=== PATIENT | male | born 1930 | race Asian ===

== ENCOUNTER 2016-08-12 08:08 | Inpatient (IN) | payer OTHER ==
[2016-08-12] VITALS (8 sets, daily range): BP systolic 107–209; BP diastolic 59–95; PULSE 64–104; RESP 18; TEMP 98.6; Ht 160 cm; Wt 65.0 kg
[~2016-08-12] VITALS: Ht 160 cm; Wt 65.0 kg
--- NOTE | 2016-08-12 08:17 | ERA ---
ER Documentation Chief Complaint Date/Time DATE: 08/12/16 TIME: 08:15 Chief Complaint HPI Patient is an 86-year-old male who presents with altered mental status of unknown duration. The patient has severe Parkinson's disease, and is in a alf. At baseline he is verbal, but this morning was found to be nonverbal. It is unclear what time the patient had a change in mental status, as the nurse had not seen him in several weeks. There is no report of fever, vomiting, focal weakness or numbness. History provided by EMS. Unable to obtain history from patient which limits history. ROS All systems reviewed and are negative except as per history of present illness. Allergies Allergies: Coded Allergies: No Known Allergy (Unverified , 08/12/16) PMhx/Soc Past medical history: Parkinson's disease, COPD, hypertension Past surgical history: PEG tube Social history: Lives in alf FmHx Unobtainable Physical Exam Vitals Vital Signs Date Time Temp Pulse Resp B/P Pulse Ox O2 Delivery O2 Flow Rate FiO2 08/12/16 08:30 101.2 105 22 132/88 100 08/12/16 08:30 Nasal Cannula 5 Physical Exam Const: Ill-appearing, tremulous, not responding to verbal stimuli, no eye contact Head: Atraumatic Eyes: Normal Conjunctiva, no pallor, no icterus ENT: Normal External Ears, Nose and Mouth. Dry mucous membranes Neck: Full range of motion..~ No meningismus. Resp: Clear to auscultation bilaterally, trace rales left lung base, no wheezes, no prolonged expiration Cardio: Tachycardia, regular rhythm, no murmurs Abd: Soft, non tender, suprapubic distention. Normal bowel sounds Skin: No petechiae or rashes Back: No midline or flank tenderness Ext: No cyanosis, or edema Neur: Awake, no eye contact, no purposeful movements, severely tremulous. Psych: Cannot assess Result Diagram: 08/12/1683408/12/16834 Results 24 hrs Laboratory Tests Test 08/12/16 08:35 08/12/16 08:53 08/12/16 10:26 White Blood Count 11.310^3/ul Red Blood Count 3.8010^6/ul Hemoglobin 11.6g/dl Hematocrit 37.9% Mean Corpuscular Volume 99.7fl Mean Corpuscular Hemoglobin 30.5pg Mean Corpuscular Hemoglobin Concent 30.6g/dl Red Cell Distribution Width 14.6% Platelet Count 67183^3/UL Mean Platelet Volume 10.1fl Neutrophils % 69.7% Lymphocytes % 22.3% Monocytes % 6.1% Eosinophils % 1.2% Basophils % 0.3% Nucleated Red Blood Cells % 0.0/100WBC Neutrophils # 7.910^3/ul Lymphocytes # 2.510^3/ul Monocytes # 0.710^3/ul Eosinophils # 0.110^3/ul Basophils # 0.010^3/ul Nucleated Red Blood Cells # 0.010^3/ul Prothrombin Time 12.8Sec Prothrombin Time Ratio 1.0 INR International Normalized Ratio 0.96 Sodium Level 143mmol/L Potassium Level 4.3mmol/L Chloride Level 98mmol/L Carbon Dioxide Level 35mmol/L Anion Gap 14 Blood Urea Nitrogen 30mg/dl Creatinine 0.84mg/dl Glucose Level 145mg/dl Lactic Acid Level 2.1mmol/L 1.8mmol/L Calcium Level 8.9mg/dl Total Bilirubin 0.5mg/dl Direct Bilirubin 0.00mg/dl Indirect Bilirubin 0.5mg/dl Aspartate Amino Transf (AST/SGOT) 26IU/L Alanine Aminotransferase (ALT/SGPT) 22IU/L Alkaline Phosphatase 89IU/L Troponin I < 0.012ng/ml Total Protein 7.8g/dl Albumin 3.7g/dl Globulin 4.10g/dl Albumin/Globulin Ratio 0.90 Urine Color LT. YELLOW Urine Clarity CLEAR Urine pH 6.0 Urine Specific [place] 1.010 Urine Ketones NEGATIVE Urine Nitrite NEGATIVE Urine Bilirubin NEGATIVE Urine Urobilinogen 0.2 E.U./dL Urine Leukocyte Esterase NEGATIVE Urine Hemoglobin NEGATIVE Urine Glucose NEGATIVE% Urine Total Protein NEGATIVE Current Medications Medications (Trade) Dose Ordered Sig/Dieudonne Route PRN Reason Start Time Stop Time Status Last Admin Dose Admin Sodium Chloride 1,000 ml @ 1,000 mls/hr Q1H ONCE IV 08/12/16 08:30 08/12/16 09:29 DC 08/12/16 08:49 Sodium Chloride 1,000 ml @ 1,000 mls/hr Q1H ONCE IV 08/12/16 08:30 08/12/16 09:29 DC 08/12/16 08:49 Cefepime HCl (Maxipime 2gm/50 ml (Pmx)) 50 ml @ 100 mls/hr ONCE ONCE IVPB 08/12/16 09:30 08/12/16 09:59 DC 08/12/16 10:02 Acetaminophen (Tylenol Liquid) 650 mg ONCE ONCE NGT 08/12/16 09:30 08/12/16 09:31 DC 08/12/16 09:58 Ondansetron HCl (Zofran Inj) 4 mg BRIDGE ORDER PRN IV NAUSEA AND/OR VOMITING 08/12/16 12:30 08/13/16 12:29 Acetaminophen (Tylenol Tab) 650 mg ER BRIDGE PRN PO MILD PAIN/FEVER 08/12/16 12:30 08/13/16 12:29 Procedures/MDM EKG read by me: Time 919, rate 102 Rhythm: Sinus tachycardia Rover: Normal Intervals: Normal ST-T waves: no ischemic changes Ectopy: No Q-waves: No Impression: Sinus tachycardia, no evidence of ischemia or arrhythmia. MDM: Patient is an 86-year-old male with severe Parkinson's disease who presents with altered mental status. The patient is usually verbal but this morning was found to be nonverbal. There is no focal neurological deficit, and the patient was found to have fever. Sepsis treatment was initiated, with blood culture sent and IV cefepime and fluids given. UA and chest x-ray did not show signs of infection, but the patient did have trace rales on lung exam which could suggest early pneumonia. The patient does have history of prior aspiration. There are no meningeal signs, and no abdominal tenderness. The patient's daughter arrived and the patient's status improved to the point that he is able to communicate now. He is [id number], but with his daughter translating he is able to say that he does not have any headache, neck pain, abdominal pain, back pain. His labs show elevated BUN to creatinine ratio , and his mucous membranes were dry on arrival, which suggests dehydration. The patient will be admitted to Dr. Jacobs for further septic workup and treatment. Departure Diagnosis: Primary Impression: Sepsis Qualified Code: A41.9 - Sepsis, due to unspecified organism Additional Impressions: Altered level of consciousness Dehydration Condition: SONA Corral MD Aug 12, 2016 08:17
[2016-08-12] MEDS ORDERED: SOD CHLORIDE 0.9% 1,000 ML IV ONE ×2 (08:30)
--- NOTE | 2016-08-12 09:02 | RADRPT ---
PROCEDURE: XR Chest. CLINICAL INDICATION: Chest pain, altered mental status TECHNIQUE: AP view of the chest was performed. COMPARISON: None FINDINGS: Mild cardiomegaly and vascular congestion are present. No signs of pleural fluid or pneumothorax are seen. No acute infiltrate. The osseous structures and soft tissues are unremarkable. IMPRESSION: Mild cardiomegaly and vascular congestion. No acute infiltrate. RPTAT: QQ .Vi Nur MD, MD Date Time Electronically viewed and signed by .Vi Nur MD, on 08/12/2016 09:02 .F/
[2016-08-12 09:18] LABS: ADD SCAN DIFF NO
[2016-08-12 09:21] LABS: BASOPHILS % 0.3 % (0.0-2.0); EOSINOPHILS # 0.1 10^3/ul (0.0-0.5); EOSINOPHILS % 1.2 % (0.0-7.0); HEMATOCRIT 37.9 % (42.0-52.0); HEMOGLOBIN 11.6 g/dl (14.0-18.0); LYMPHOCYTES # 2.5 10^3/ul (0.8-2.9); LYMPHOCYTES % 22.3 % (15.0-51.0); MEAN CORPUSCULAR HEMOGLOBIN 30.5 pg (29.0-33.0); MEAN CORPUSCULAR HGB CONC 30.6 g/dl (32.0-37.0); MEAN CORPUSCULAR VOLUME 99.7 fl (82.0-101.0); MEAN PLATELET VOLUME 10.1 fl (7.4-10.4); MONOCYTE # 0.7 10^3/ul (0.3-0.9); MONOCYTES % 6.1 % (0.0-11.0); NEUTROPHIL # 7.9 10^3/ul (1.6-7.5); NEUTROPHILS % 69.7 % (39.0-77.0); PLATELET COUNT 179 10^3/UL (140-415); RED CELL DISTRIBUTION WIDTH 14.6 % (11.5-14.5); WHITE BLOOD COUNT 11.3 10^3/ul (4.8-10.8)
[2016-08-12 09:25] LABS: ADD UMIC NO; URINE BILIRUBIN (Dip) NEGATIVE (NEGATIVE); URINE BLOOD (Dip) NEGATIVE (NEGATIVE); URINE COLOR LT. YELLOW (YELLOW); URINE GLUCOSE (Dip) NEGATIVE (NEGATIVE); URINE KETONES (Dip) NEGATIVE (NEGATIVE); URINE LEUKOCYTE ESTERASE (Dip) NEGATIVE (NEGATIVE); URINE NITRITE (Dip) NEGATIVE (NEGATIVE); URINE TOTAL PROTEIN (Dip) NEGATIVE (NEGATIVE); URINE UROBILINOGEN (Dip) 0.2 E.U./dL (0.1-1.0)
[2016-08-12 09:30] LABS: ALBUMIN 3.7 g/dl (3.3-4.9); CHLORIDE 98 mmol/L (97-110); POTASSIUM 4.3 mmol/L (3.5-5.1); SODIUM 143 mmol/L (135-144)
[2016-08-12] MEDS ORDERED: CEFEPIME 2GM/50 ML (PMX) 50 ML IVPB ONE (09:30)
[2016-08-12] MEDS ORDERED: ACETAMINOPHEN 650MG/20.3ML CUP NGT ONE (09:30)
[2016-08-12 09:31] LABS: INR 0.96; PROTIME 12.8 Sec (12.2-14.2)
[2016-08-12 09:32] LABS: CREATININE 0.84 mg/dl (0.61-1.24)
[2016-08-12 09:33] LABS: ALANINE AMINOTRANSFERASE 22 IU/L (13-69); ALKALINE PHOSPHATASE 89 IU/L (42-121); ANION GAP 14 (8-16); ASPARTATE AMINO TRANSFERASE 26 IU/L (15-46); BILIRUBIN,INDIRECT 0.5 mg/dl (0-1.1); BILIRUBIN,TOTAL 0.5 mg/dl (0.2-1.3); BLOOD UREA NITROGEN 30 mg/dl (7-20); CALCIUM 8.9 mg/dl (8.4-10.2); CARBON DIOXIDE 35 mmol/L (21-31); GLUCOSE 145 mg/dl (70-220); TOTAL PROTEIN 7.8 g/dl (6.1-8.1)
[2016-08-12 09:50] LABS: TROPONIN-I < 0.012 ng/ml (0.00-0.12)
[2016-08-12] MEDS ORDERED: ACETAMINOPHEN 325 MG TAB PO PRN (12:30)
[2016-08-12] MEDS ORDERED: ONDANSETRON 4 MG INJ IV PRN ×2 (12:30→14:00)
[2016-08-12] MEDS ORDERED: NA PHOSPHATE/BIPHOS 133 ML ENEMA PR PRN (14:00)
[2016-08-12] MEDS ORDERED: morphine 2 MG INJ IV PRN (14:00)
[2016-08-12] MEDS ORDERED: DOCUSATE SODIUM 100 MG CAP PO PRN (14:00)
[2016-08-12] MEDS ORDERED: VANCOMYCIN IV PER PHARMACY XX SCH (14:00)
[2016-08-12] MEDS ORDERED: NITROGLYCERIN (SL) 0.4 MG TAB SL PRN (14:00)
[2016-08-12] MEDS ORDERED: MAGNESIUM HYDROXIDE 30ML CUP PO PRN (14:00)
[2016-08-12] MEDS ORDERED: HYDROCODONE/APAP (5/325) TAB PO PRN (14:00)
[2016-08-12] MEDS ORDERED: NACL 0.9% 3 ML SYG IV SCH (14:00)
--- NOTE | 2016-08-12 14:28 | HP ---
DATE OF ADMISSION: 08/12/2016 CHIEF COMPLAINT: Altered mental status. HISTORY OF PRESENT ILLNESS: This is an 86-year-old male with past medical history of severe Jose on disease and G-tube placement, who lives in a retirement who was brought over because of altered mental status to the ER. Most of the information obtained from the ER documentation as the patient is not able to provide a full HPI or review of systems. Apparently it is unclear what time the pat ieasha had a change in mental status, as the nursing staff had apparently not seen him in a few weeks. When he came to the ER today, he had a temperature 101.2. Denied any vomiting or weakness or numb ness, based on the documentation, but that was the extent of the review of the systems that could be obtained. When he came in today, he also had a lactic acid of 2.1 and a white blood cell count of 11.3 and questionable findings on the chest x-ray of a possible left lower lobe pneumonia. PAST MEDICAL HISTORY: As stated above, as well as hypertension and COPD. ALLERGIES: NO KNOWN DRUG ALLERGIES. MEDICATIONS AT HOME: Unknown. PAST SURGICAL HISTORY: He has had PEG tube placed in the past. SOCIAL HISTORY: Lives in a retirement, unclear about smoking history or drug abuse or alcohol use . Unclear about those. FAMILY HISTORY: Unknown. PHYSICAL EXAMINATION: VITAL SIGNS: T-max 101.2, pulse 105, respirations 22, blood pressure 132/88, saturating 100% on 5 l iters nasal cannula. GENERAL: The patient lying in bed, does not make eye contact, nonresponsive to verbal stimuli. HEENT: Pupils equal, round, react to light. Extraocular muscles intact. NECK: Supple, no thyromegaly. LUNGS: Clear to auscultation bilaterally. CARDIOVASCULAR: S1, S2 heard, tachycardic heart rate. No rubs or gallops. ABDOMEN: Soft, nontender, nondistended. G-tube in place, normal bowel sounds. No rebound or guard ing. MUSCULOSKELETAL: No lower extremity edema bilaterally. NEUROLOGIC: No focal deficits. LABORATORIES: WBC 11.3, hemoglobin 11.6, hematocrit 37.9, platelets 179. The comprehensive metabol ic panel is essentially normal. Troponin is negative x1. Coags are normal. UA was negative. IMAGING: Chest x-ray showed mild cardiomegaly, vascular congestion. ASSESSMENT AND PLAN: An 86-year-old male coming in with sepsis, unclear source, possibly secondary to upper respiratory infection after having altered mental status. 1. Altered mental status, again unclear source. We will go ahead and get a head CT as well. Check TSH, A1c, lipid panel as well. 2. Sepsis, again, patient with fever and slightly elevated lactic acidosis, leukocytosis and tachyc ardia, unclear source, although questionable findings on the chest x-ray with possible aspiration pn eumonia upon reviewing the actual image, so will put the patient on broad spectrum antibiotics, IV f luids. Again, Check a TSH, A1c, lipid panel. Tylenol p.r.n. pain and fevers as well. 3. History of severe Parkinson disease. Continue to monitor for now. Try to get home medication l ist the patient 4. Gastrointestinal and Protonix IV for GI prophylaxis and hold the G-tube feeds for now. 5. Deep venous thrombosis prophylaxis will be on heparin subq. Get a PT consult as well and OT arina sinclair. Dictated By: TERESA GORMAN Conf#: [id number] DID#: [id number]
[2016-08-12] MEDS: SOD CHLORIDE 0.9% 1,000 ML IV SCH (15:08)
[2016-08-12] MEDS ORDERED: VANCOMYCIN 1.25 GM in SOD CHLORIDE 0.9% 250 ML IVPB SCH (16:00)
[2016-08-12] MEDS: MIDODRINE 5 MG TAB GTB SCH (17:00)
--- NOTE | 2016-08-12 17:08 | RADRPT ---
PROCEDURE: CT Head without. CLINICAL INDICATION: Suspected stroke. TECHNIQUE: The study was performed utilizing a multi-slice, multidetector CT scanner. Direct spira l 1 mm axial sections were obtained through the head without the use of intravenous contrast materia l. 1 or more of the following dose reduction techniques were utilized: Automated exposure control, adjustment of the mA and/or kV according to patient's size, iterative reconstruction technique. Co lyndsey and sagittal reformations were obtained. The images were reviewed on a PACS workstation. RADIATION DOSE: CTDIvol: 45.0 mGyDLP: 810.3 mGy-cm COMPARISON: No prior studies are available for comparison. FINDINGS: There is no intracranial hemorrhage, extra-axial fluid collection, mass lesion, midline shift or hyd rocephalus. 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 There is mild prominence of the cerebral sulci, lateral and third ventricles. There is mild periventricular and subcortical white matter hypodensity. There is moderate arteriosclerotic calcification of the teto ellar internal carotid arteries. The suarez-white matter differentiation is preserved. The basal cis terns are patent. The midline structures are intact. There are mild inflammatory changes of the bi lateral maxillary sinuses. There are postoperative changes from bilateral medial antrectomies and p artial ethmoidectomies, incompletely evaluated. The orbits, calvarium and extracranial soft tissues are normal in appearance. The mastoid air cells and middle ear cavities are normally aerated. IMPRESSION: 1. No acute intracranial abnormality. No intracranial hemorrhage, extra-axial fluid collection, ma ss lesion or hydrocephalous. 2. Mild peripheral and central cerebral volume loss. 3. Mild periventricular and subcortical white matter hypodensity, likely related to chronic microan giopathic changes. 4. No CT evidence of infarct at this time. If clinical concern for infarct, MRI is recommended for further evaluation. 4. Benign left middle cranial fossa arachnoid cyst measuring 3.6 x 2.1 cm. RPTAT: HGAS .Gallito Patton MD, Date Time Electronically viewed and signed by .Gallito Patton MD, on 08/12/2016 17:08 .S/
[2016-08-12] MEDS ORDERED: GUAIFENESIN 20 MG/ML 5ML CUP GTB PRN (17:30)
[2016-08-12] MEDS: hydrALAzine 20 MG INJ IV PRN (18:10)
[2016-08-12] MEDS ORDERED: ARTIFICIAL TEARS 15 ML OPH BOTH EYES PRN (18:30)
[2016-08-12] MEDS: PIPER-TAZO 3.375 GM IV (PMX) 100 ML IVPB SCH (18:52)
[2016-08-12] MEDS: LORAZEPAM 2 MG INJ IV PRN (19:56)
[2016-08-12] MEDS: SALMETEROL/FLUTICASONE 250/50 INHA INH SCH (21:02)
[2016-08-12] MEDS: CARBIDOPA/LEVODOPA (25/100) TAB GTB SCH (21:02)
[2016-08-12] MEDS: SENNA TAB PO SCH (21:07)
[2016-08-12] MEDS: PRAMIPEXOLE 1 MG TAB NGT SCH (21:08)
[2016-08-12] MEDS: HEPARIN 5,000 UNIT/0.5 ML VIAL SC SCH (21:09)
[2016-08-12] MEDS: MONTELUKAST 10 MG TAB GTB SCH (21:19)
[2016-08-12] MEDS: ASCORBIC ACID 500 MG TAB GTB SCH (21:19)
[2016-08-13] MEDS: PIPER-TAZO 3.375 GM IV (PMX) 100 ML IVPB SCH ×5 (01:29→23:48)
[2016-08-13] MEDS: SOD CHLORIDE 0.9% 1,000 ML IV SCH ×2 (01:29→14:29)
[2016-08-13] MEDS: PANTOPRAZOLE 40 MG INJ IV SCH (05:50)
[2016-08-13 05:59] LABS: CHOL/HDL RATIO 2.4 RATIO
[2016-08-13 06:59] LABS: THYROID STIMULATING HORMONE 2.32 MIU/L (0.465-4.680)
[2016-08-13 08:10] VITALS: BP 166/77; RESP 20
[2016-08-13 08:27] LABS: CALCIUM 8.5 mg/dl (8.4-10.2); CREATININE 0.63 mg/dl (0.61-1.24); MAGNESIUM 2.1 mg/dl (1.7-2.5); PHOSPHORUS 3.2 mg/dl (2.5-4.9); POTASSIUM 4.2 mmol/L (3.5-5.1)
[2016-08-13] MEDS ORDERED: [UNRECOGNIZED DRUG - REMARK] XX SCH (08:30)
[2016-08-13] MEDS: MIDODRINE 5 MG TAB GTB SCH ×3 (09:00→17:00)
[2016-08-13 09:03] LABS: ADD SCAN DIFF NO
[2016-08-13] MEDS: SALMETEROL/FLUTICASONE 250/50 INHA INH SCH ×2 (09:09→21:38)
[2016-08-13] MEDS: ASCORBIC ACID 500 MG TAB GTB SCH ×2 (09:10→21:40)
[2016-08-13] MEDS: PRAMIPEXOLE 1 MG TAB NGT SCH ×3 (09:10→21:40)
[2016-08-13] MEDS: CARBIDOPA/LEVODOPA (25/100) TAB GTB SCH ×3 (09:10→21:39)
[2016-08-13] MEDS: MULTIVITAMINS 5 ML CUP GTB SCH (09:10)
[2016-08-13 09:11] LABS: BASOPHILS % 0.3 % (0.0-2.0); EOSINOPHILS # 0.1 10^3/ul (0.0-0.5); EOSINOPHILS % 1.2 % (0.0-7.0); HEMATOCRIT 35.6 % (42.0-52.0); HEMOGLOBIN 10.6 g/dl (14.0-18.0); LYMPHOCYTES # 1.2 10^3/ul (0.8-2.9); LYMPHOCYTES % 13.4 % (15.0-51.0); MEAN CORPUSCULAR HEMOGLOBIN 30.2 pg (29.0-33.0); MEAN CORPUSCULAR HGB CONC 29.8 g/dl (32.0-37.0); MEAN CORPUSCULAR VOLUME 101.4 fl (82.0-101.0); MEAN PLATELET VOLUME 10.2 fl (7.4-10.4); MONOCYTE # 0.6 10^3/ul (0.3-0.9); MONOCYTES % 7.1 % (0.0-11.0); NEUTROPHILS % 77.8 % (39.0-77.0); PLATELET COUNT 146 10^3/UL (140-415); RED BLOOD COUNT 3.51 10^6/ul (4.70-6.10); RED CELL DISTRIBUTION WIDTH 14.6 % (11.5-14.5)
[2016-08-13] MEDS: HEPARIN 5,000 UNIT/0.5 ML VIAL SC SCH ×2 (09:18→21:43)
[2016-08-13 12:28] VITALS: BP 150/70; PULSE 83
[2016-08-13] MEDS: ACETAMINOPHEN 325 MG TAB PO PRN (12:33)
[2016-08-13] MEDS: VANCOMYCIN 1.25 GM in SOD CHLORIDE 0.9% 250 ML IVPB SCH (14:29)
[2016-08-13 14:42] VITALS: BP 178/81; PULSE 92
[2016-08-13 15:51] VITALS: BP 113/58; PULSE 70
[2016-08-13 17:14] VITALS: BP 137/94; PULSE 94
--- NOTE | 2016-08-13 19:10 | PN ---
DATE: 08/13/2016 SUBJECTIVE: Chart reviewed. No significant events noted. The patient at this time is awake and co nversant; however, not sure what he is verbalizing clearly. The patient has been started on G-tube feedings. PHYSICAL EXAMINATION: VITAL SIGNS: Blood pressure 150/70, pulse 83, respirations 20, temperature 98.5. HEENT: Pupils are equal, reactive to light. Anicteric sclerae. Dry oral mucosa. NECK: Supple. No JVD noted, no cervical adenopathy, no carotid bruits heard. LUNGS: Fair breath sounds bilaterally. CARDIOVASCULAR: S1, S2 normal. ABDOMEN: Soft, nontender. G-tube in place. EXTREMITIES: No clubbing or cyanosis noted. NEUROLOGIC: Slightly conversant compared to yesterday. LABORATORY DATA: Sodium 140, potassium 4.2, chloride 107, CO2 of ____, BUN 20, creatinine 0.63, glu cose 81. WBC 9, hemoglobin 10.6, hematocrit 35.6, platelets 145. UA is negative. Chest x-ray show s no acute infiltrate. IMPRESSION: 1. Acute encephalopathy. Source unclear at this time. 2. Dysphagia. 3. History of hypertension. 4. History of chronic obstructive pulmonary disease. 5. Question underlying mental status or whether he has any history of dementia. Will clarify with the family. PLAN: 1. Continue current antibiotics. 2. Continue G-tube feedings. 3. Follow up labs in the morning. 4. ST eval. Above discussed with the staff in detail. Dictated By: DANN WALTON MD, MA/ORALIA Conf#: [id number] DID#: [id number] CC: TERESA RAINES;*EndCC*
[2016-08-13 20:02] VITALS: BP 166/77; RESP 20
[2016-08-13] MEDS: SENNA TAB PO SCH (21:41)
[2016-08-13] MEDS: MONTELUKAST 10 MG TAB GTB SCH (21:41)
[2016-08-14] MEDS: SOD CHLORIDE 0.9% 1,000 ML IV SCH ×3 (05:51→15:07)
[2016-08-14] MEDS: PANTOPRAZOLE 40 MG INJ IV SCH (05:51)
[2016-08-14] MEDS: PIPER-TAZO 3.375 GM IV (PMX) 100 ML IVPB SCH ×4 (05:51→23:34)
[2016-08-14] MEDS: ACETAMINOPHEN 325 MG TAB PO PRN ×2 (05:57→18:22)
[2016-08-14 08:01] VITALS: BP 152/72; RESP 16
[2016-08-14 08:43] LABS: ADD SCAN DIFF NO
[2016-08-14 08:55] LABS: BASOPHILS % 0.2 % (0.0-2.0); EOSINOPHILS % 0.3 % (0.0-7.0); HEMATOCRIT 32.5 % (42.0-52.0); HEMOGLOBIN 10.5 g/dl (14.0-18.0); LYMPHOCYTES # 0.7 10^3/ul (0.8-2.9); LYMPHOCYTES % 7.8 % (15.0-51.0); MEAN CORPUSCULAR HEMOGLOBIN 31.3 pg (29.0-33.0); MEAN CORPUSCULAR HGB CONC 32.3 g/dl (32.0-37.0); MEAN CORPUSCULAR VOLUME 96.7 fl (82.0-101.0); MEAN PLATELET VOLUME 10.3 fl (7.4-10.4); MONOCYTE # 0.5 10^3/ul (0.3-0.9); NEUTROPHIL # 7.5 10^3/ul (1.6-7.5); NEUTROPHILS % 85.4 % (39.0-77.0); PLATELET COUNT 146 10^3/UL (140-415); RED BLOOD COUNT 3.36 10^6/ul (4.70-6.10); RED CELL DISTRIBUTION WIDTH 14.3 % (11.5-14.5); WHITE BLOOD COUNT 8.8 10^3/ul (4.8-10.8)
[2016-08-14] MEDS: MIDODRINE 5 MG TAB GTB SCH ×2 (09:00→12:45)
[2016-08-14 09:35] LABS: CALCIUM 8.1 mg/dl (8.4-10.2); CREATININE 0.65 mg/dl (0.61-1.24); POTASSIUM 3.6 mmol/L (3.5-5.1)
[2016-08-14] MEDS: MULTIVITAMINS 5 ML CUP GTB SCH (09:39)
[2016-08-14] MEDS: ASCORBIC ACID 500 MG TAB GTB SCH ×2 (09:39→22:20)
[2016-08-14] MEDS: CARBIDOPA/LEVODOPA (25/100) TAB GTB SCH ×3 (09:39→22:20)
[2016-08-14] MEDS: SALMETEROL/FLUTICASONE 250/50 INHA INH SCH ×2 (09:40→22:18)
[2016-08-14] MEDS: HEPARIN 5,000 UNIT/0.5 ML VIAL SC SCH ×2 (09:41→22:19)
[2016-08-14] MEDS: PRAMIPEXOLE 1 MG TAB NGT SCH ×3 (09:44→22:18)
[2016-08-14] MEDS: VANCOMYCIN 1.25 GM in SOD CHLORIDE 0.9% 250 ML IVPB SCH (15:03)
--- NOTE | 2016-08-14 15:11 | PN ---
Date/Time of Note Date/Time of Note DATE: 08/14/16 TIME: 15:07 Assessment/Plan VTE Prophylaxis VTE Prophylaxis Intervention: heparin Lines/Catheters IV C[facility]ter Type (from [facility]): Peripheral IV Urinary Cath still in place: Yes Reason Cath still needed: other (indicate) Assessment/Plan Assessment/Plan 1. Acute metabolic encephalopathy, sepsis related, resolved 2. Aspiration pneumonia, on antibiotics 3. Sepsis,improved 3. Parkinson disease. Continue to monitor for now. 4. Gastrointestinal and Protonix IV for GI prophylaxis and hold the G-tube feeds for now. 5. Deep venous thrombosis prophylaxis will be on heparin subq. Subjective 24 Hr Interval Summary Free Text/Dictation full oriented and oriented today. coughs occasionally per staff Exam/Review of Systems Vital Signs Vitals Vital Signs Date Time Temp Pulse Resp B/P Pulse Ox O2 Delivery O2 Flow Rate FiO2 08/14/16 11:30 98.3 08/14/16 08:01 71 16 152/72 97 08/14/16 05:40 2.0 08/13/16 20:00 Nasal Cannula Intake and Output 08/13/16 08/13/16 08/14/16 15:00 23:00 07:00 Intake Total 350 ml 2600 ml Output Total 850 ml 850 ml Balance -500 ml 1750 ml Exam Constitutional: alert, oriented, well developed Psych: nl mood/affect, no complaints Head: atraumatic, normocephalic Eyes: EOMI, PERRL, nl conjunctiva, nl lids ENMT: nl external ears & nose, nl lips & teeth, nl nasal mucosa & septum Neck: non-tender, supple Respiratory: clear to auscultation, normal air movement, No congested cough, No crackles/rales, No diminished breath sounds, No intercostal retraction, No labored breathing, No other, No respirations, No tactile fremitus, No wheezing Cardiovascular: nl pulses, regular rate and rhythm, No S3, No S4, No bruits, No diastolic murmur, No edema, No gallop, No irregular rhythm, No jugular venous distention (JVD), No murmurs/extra sounds, No other, No rub, No systolic murmur Gastrointestinal: nl liver, spleen, non-tender, soft, No ascites, No bowel sounds, No distended, No firm, No hepatomegaly, No mass , No other, No rebound or guarding, No splenomegaly, No surgical scars, No tender Musculoskeletal: nl extremities to inspection Extremities: normal pulses, No calf tenderness, No clubbing, No cyanosis, No edema, No other, No palpable cord, No pitting pedal edema, No tenderness Neurological: WASTE DISPOSAL ATTENDANT II-XII intact, nl mental status, nl speech, nl strength Skin: nl turgor Lymph: nl lymph nodes Results Result Diagram: 08/14/16 0710 08/14/16 0710 Results 24 hrs Laboratory Tests Test 08/13/16 18:44 08/14/16 07:10 Lactic Acid Level 0.9 White Blood Count 8.8 Red Blood Count 3.36 L Hemoglobin 10.5 L Hematocrit 32.5 L Mean Corpuscular Volume 96.7 Mean Corpuscular Hemoglobin 31.3 Mean Corpuscular Hemoglobin Concent 32.3 Red Cell Distribution Width 14.3 Platelet Count 146 Mean Platelet Volume 10.3 Neutrophils % 85.4 H Lymphocytes % 7.8 L Monocytes % 6.0 Eosinophils % 0.3 Basophils % 0.2 Nucleated Red Blood Cells % 0.0 Neutrophils # 7.5 Lymphocytes # 0.7 L Monocytes # 0.5 Eosinophils # 0.0 Basophils # 0.0 Nucleated Red Blood Cells # 0.0 Sodium Level 138 Potassium Level 3.6 Chloride Level 107 Carbon Dioxide Level 27 Anion Gap 8 Blood Urea Nitrogen 18 Creatinine 0.65 Glucose Level 132 # Calcium Level 8.1 L Medications Medications Current Medications Ondansetron HCl (Zofran Inj) 4 mg Q6H PRN IV NAUSEA AND/OR VOMITING; Start at 14:00 Acetaminophen (Tylenol Tab) 650 mg Q6H PRN PO PAIN LEVEL 1-3 OR FEVER Last administered on 08/14/16 05:57; Admin Dose 650 MG; Start 08/12/16 at 14:00 Acetaminophen/ Hydrocodone Bitart ([place] (5/325)) 1 tab Q6H PRN PO MODERATE PAIN LEVEL 4-6 Last administered on 08/12/16 18:05; Admin Dose 1 TAB; Start at 14:00 Morphine Sulfate (morphine) 2 mg Q4H PRN IV SEVERE PAIN LEVEL 7-10; Start 08/12 at 14:00 Docusate Sodium (Colace) 100 mg Q12H PRN PO CONSTIPATION; Start 08/12/16 at 14: 00 Magnesium Hydroxide (Milk Of Mag) 30 ml DAILY PRN PO CONSTIPATION; Start at 14:00 Sodium Biphosphate/ Sodium Phosphate (Fleet Enema) 133 ml DAILY PRN [place] CONSTIPATION; Start 08/12/16 at 14:00 Pantoprazole (Protonix Iv) 40 mg DAILY@06 IV Last administered on 08/14/16 05: 51; Admin Dose 40 MG; Start 08/13/16 at 06:00 Heparin Sodium (Porcine) (Heparin (5000 Units/0.5 ml)) 5,000 unit Q12 SC Last administered on 08/14/16 09:41; Admin Dose 5,000 UNIT; Start 08/12/16 at 21:00 Lorazepam 0.5 mg 0.5 mg Q6H PRN IV ANXIETY Last administered on 08/12/16 19:56 ; Admin Dose 0.5 MG; Start 08/12/16 at 14:00 Sodium Chloride 1,000 ml @ 100 mls/hr Q10H IV Last administered on 08/14/16 05 :51; Admin Dose 100 MLS/HR; Start 08/12/16 at 13:54 Piperacillin Sod/ Tazobactam Sod (Zosyn 3.375gm/ 100 ml (Pmx)) 100 ml @ 200 mls /hr Q6 IVPB Last administered on 08/14/16 12:45; Admin Dose 200 MLS/HR; Start 08/12/16 at 18:00 Vancomycin HCl (Vanco Iv Per Pharmacy) VANCOMYCIN PER PHARMACY NOTE XX ; Start 08/12/16 at 14:00 Hydralazine HCl (Apresoline) 10 mg Q6H PRN IV ELEVATED BLOOD PRESSURE Last administered on 08/12/16 18:10; Admin Dose 10 MG; Start 08/12/16 at 14:00 Nitroglycerin 1 tab 1 tab Q5M PRN SL ANGINA; Start 08/12/16 at 14:00 Vancomycin HCl/ Sodium Chloride (Vancocin/NS) 250 ml @ 83.333 mls/ hr Q24H IVPB Last administered on 08/14/16 15:03; Admin Dose 83.333 MLS/HR; Start at 15:00 Salmeterol Xinafoate/ Fluticasone (Advair 250/50 Diskus) 1 inh BID INH Last administered on 08/14/16 09:40; Admin Dose 1 INH; Start 08/12/16 at 21:00 Carbidopa/Levodopa (Sinemet (25/ 100)) 1 tab TID GTB Last administered on 12:45; Admin Dose 1 TAB; Start 08/12/16 at 21:00 Midodrine (Proamatine) 5 mg TID@,, GTB ; Start 08/12/16 at 17:00 Montelukast Sodium (Singulair) 10 mg HS GTB Last administered on 08/13/16 21:41 ; Admin Dose 10 MG; Start 08/12/16 at 21:00 Multivitamins (Thera-Plus) 5 ml DAILY GTB Last administered on 08/14/16 09:39; Admin Dose 5 ML; Start 08/13/16 at 09:00 Pramipexole (Mirapex) 1.5 mg TID NGT Last administered on 08/14/16 12:45; Admin Dose 1.5 MG; Start 08/12/16 at 21:00 Senna (Senokot) 2 tab HS PO Last administered on 08/13/16 21:41; Admin Dose 2 TAB; Start 08/12/16 at 21:00 Ascorbic Acid (Vitamin C) 500 mg BID GTB Last administered on 08/14/16 09:39; Admin Dose 500 MG; Start 08/12/16 at 21:00 Guaifenesin (Robitussin Liquid Cup) 200 mg Q6H PRN GTB COUGH; Start 08/12/16 at 17:30 Eye Lubricant (Artificial Tears Oph) 2 drop TID PRN BOTH EYES DRY EYES Last administered on 08/13/16 09:10; Admin Dose 2 DROP; Start 08/12/16 at 18:30 Clonidine (Catapres) 0.1 mg Q6H PRN GTB SBP >170 Last administered on 08/13/16 14:45; Admin Dose 0.1 MG; Start 08/12/16 at 19:00 Miscellaneous Information (*Rx Drug Level Order Reminder*) VANCOMYCIN TROUGH LEVEL... ONCE ONCE XX ; Start 08/15/16 at 14:00; Stop 08/15/16 at 14:01 GEGE HERNDAEZ MD August 14, 2016 15:11
[2016-08-14 19:55] VITALS: BP 131/63; RESP 20
[2016-08-14] MEDS: MONTELUKAST 10 MG TAB GTB SCH (22:18)
[2016-08-14] MEDS: SENNA TAB PO SCH (22:20)
[2016-08-15] MEDS: LORAZEPAM 2 MG INJ IV PRN ×2 (02:21→07:57)
[2016-08-15] MEDS: ALBUTEROL/IPRATROPIUM (NEB) 3 ML AMP HHN PRN ×2 (02:36→06:18)
[2016-08-15] MEDS: PANTOPRAZOLE 40 MG INJ IV SCH (06:12)
[2016-08-15] MEDS: PIPER-TAZO 3.375 GM IV (PMX) 100 ML IVPB SCH ×3 (06:12→18:38)
[2016-08-15 06:15] VITALS: BP 189/91; PULSE 108
[2016-08-15] MEDS: hydrALAzine 20 MG INJ IV PRN (06:16)
[2016-08-15] MEDS ORDERED: hydrALAzine 20 MG INJ IV ONE (07:30)
[2016-08-15] MEDS ORDERED: FUROSEMIDE 20 MG INJ IV ONE (07:30)
--- NOTE | 2016-08-15 08:33 | RADRPT ---
PROCEDURE: XR Chest. CLINICAL INDICATION: Congestion. TECHNIQUE: Single frontal portable chest was obtained. COMPARISON: 08/12/2016.. FINDINGS: Cardiac silhouette is enlarged and there is calcification in the thoracic aorta. Pulmonary vasculat ure is prominent. There are diffuse interstitial opacities. There is air space consolidation in darek th upper lung villegas and the left lower lung field. There are bilateral pleural effusions, left gre ater than right. IMPRESSION: 1. Cardiomegaly with prominence the upper lobe vasculature in diffuse interstitial opacities which may reflect edema. 2. Patchy bilateral air space opacities which may be secondary to alveolar edema versus multi focal pneumonia. 3. Bilateral pleural effusions, left greater than right. RPTAT: [facility] Physician Christianne Date Time Electronically viewed and signed by Physician Christianne on 08/15/2016 08:33 /
[2016-08-15 08:59] LABS: ADD SCAN DIFF NO
[2016-08-15 09:05] LABS: ABNORMAL IP MESSAGE 1; BASOPHILS % 0.1 % (0.0-2.0); HEMATOCRIT 34.7 % (42.0-52.0); HEMOGLOBIN 11.1 g/dl (14.0-18.0); LYMPHOCYTES # 0.3 10^3/ul (0.8-2.9); LYMPHOCYTES % 1.7 % (15.0-51.0); MEAN CORPUSCULAR HEMOGLOBIN 30.5 pg (29.0-33.0); MEAN CORPUSCULAR VOLUME 95.3 fl (82.0-101.0); MEAN PLATELET VOLUME 10.3 fl (7.4-10.4); MONOCYTE # 0.5 10^3/ul (0.3-0.9); MONOCYTES % 3.2 % (0.0-11.0); NEUTROPHIL # 14.2 10^3/ul (1.6-7.5); NEUTROPHILS % 94.5 % (39.0-77.0); PLATELET COUNT 131 10^3/UL (140-415); RED BLOOD COUNT 3.64 10^6/ul (4.70-6.10); RED CELL DISTRIBUTION WIDTH 14.7 % (11.5-14.5)
[2016-08-15] MEDS: CARBIDOPA/LEVODOPA (25/100) TAB GTB SCH ×2 (09:12→12:55)
[2016-08-15] MEDS: MULTIVITAMINS 5 ML CUP GTB SCH (09:13)
[2016-08-15] MEDS: PRAMIPEXOLE 1 MG TAB NGT SCH ×2 (09:13→12:55)
[2016-08-15] MEDS: ASCORBIC ACID 500 MG TAB GTB SCH ×2 (09:13→22:14)
[2016-08-15] MEDS: ACETAMINOPHEN 325 MG TAB PO PRN (09:13)
[2016-08-15] MEDS: HEPARIN 5,000 UNIT/0.5 ML VIAL SC SCH ×2 (09:17→22:31)
[2016-08-15 09:22] LABS: POTASSIUM 3.3 mmol/L (3.5-5.1)
[2016-08-15 09:24] LABS: CREATININE 0.64 mg/dl (0.61-1.24)
[2016-08-15 09:26] LABS: CALCIUM 8.2 mg/dl (8.4-10.2)
[2016-08-15] MEDS: SALMETEROL/FLUTICASONE 250/50 INHA INH SCH ×2 (13:01→21:00)
[2016-08-15] MEDS ORDERED: POTASSIUM CHLORIDE (SR) 20 MEQ TAB PO STA (14:34)
--- NOTE | 2016-08-15 14:44 | PN ---
Date/Time of Note Date/Time of Note DATE: 08/15/16 TIME: 14:40 Assessment/Plan VTE Prophylaxis VTE Prophylaxis Intervention: heparin Lines/Catheters IV Catheter Type (from Nrs): Peripheral IV Urinary Cath still in place: Yes Reason Cath still needed: other (indicate) Assessment/Plan Assessment/Plan 1. 2. Aspiration pneumonia, on zosyn 2. Acute metabolic encephalopathy, sepsis related, resolved 3. Sepsis,improved 3. Parkinson disease. Continue to monitor for now. 4. Anxiety, xanax prn 5. Deep venous thrombosis prophylaxis: heparin Subjective 24 Hr Interval Summary Free Text/Dictation blood pressure and heart rate go up when anxious. No patient is asleep, [id number]. Exam/Review of Systems Vital Signs Vitals Vital Signs Date Time Temp Pulse Resp B/P Pulse Ox O2 Delivery O2 Flow Rate FiO2 08/15/16 09:04 10.0 08/15/16 09:00 Simple Mask 08/15/16 06:27 94 08/15/16 06:18 100 24 08/15/16 06:15 189/91 08/14/16 19:55 98.2 Intake and Output 08/14/16 08/14/16 08/15/16 15:00 23:00 07:00 Intake Total 100 ml 2270 ml 1320 ml Output Total 1200 ml 1100 ml Balance 100 ml 1070 ml 220 ml Exam Constitutional: alert, non-verbal Head: atraumatic, normocephalic Eyes: EOMI, PERRL, nl conjunctiva, nl lids ENMT: mucosa pink and moist, nl external ears & nose, nl lips & teeth, nl nasal mucosa & septum Neck: non-tender, supple Respiratory: crackles/rales Cardiovascular: nl pulses, regular rate and rhythm, No S3, No S4, No bruits, No diastolic murmur, No edema, No gallop, No irregular rhythm, No jugular venous distention (JVD), No murmurs/extra sounds, No other, No rub, No systolic murmur Gastrointestinal: nl liver, spleen, non-tender, other (G-tube), soft, No ascites, No bowel sounds, No distended, No firm, No hepatomegaly, No mass , No rebound or guarding, No splenomegaly, No surgical scars, No tender Musculoskeletal: nl extremities to inspection Extremities: normal pulses, No calf tenderness, No clubbing, No cyanosis, No edema, No other, No palpable cord, No pitting pedal edema, No tenderness Neurological: HYDROGEOLOGIST II-XII intact, nl strength Skin: nl turgor Lymph: nl lymph nodes Results Result Diagram: 08/15/16 0825 08/15/16 0825 Results 24 hrs Laboratory Tests Test 08/15/16 08:25 White Blood Count 15.0 #H Red Blood Count 3.64 L Hemoglobin 11.1 L Hematocrit 34.7 L Mean Corpuscular Volume 95.3 Mean Corpuscular Hemoglobin 30.5 Mean Corpuscular Hemoglobin Concent 32.0 Red Cell Distribution Width 14.7 H Platelet Count 131 L Mean Platelet Volume 10.3 Neutrophils % 94.5 H Lymphocytes % 1.7 L Monocytes % 3.2 Eosinophils % 0.0 Basophils % 0.1 Nucleated Red Blood Cells % 0.0 Neutrophils # 14.2 H Lymphocytes # 0.3 L Monocytes # 0.5 Eosinophils # 0.0 Basophils # 0.0 Nucleated Red Blood Cells # 0.0 Sodium Level 139 Potassium Level 3.3 L Chloride Level 103 Carbon Dioxide Level 28 Anion Gap 11 Blood Urea Nitrogen 17 Creatinine 0.64 Glucose Level 146 Calcium Level 8.2 L Medications Medications Current Medications Ondansetron HCl (Zofran Inj) 4 mg Q6H PRN IV NAUSEA AND/OR VOMITING; Start at 14:00 Acetaminophen (Tylenol Tab) 650 mg Q6H PRN PO PAIN LEVEL 1-3 OR FEVER Last administered on 08/15/16 09:13; Admin Dose 650 MG; Start 08/12/16 at 14:00 Acetaminophen/ Hydrocodone Bitart ([place] (5/325)) 1 tab Q6H PRN PO MODERATE PAIN LEVEL 4-6 Last administered on 08/12/16 18:05; Admin Dose 1 TAB; Start at 14:00 Morphine Sulfate (morphine) 2 mg Q4H PRN IV SEVERE PAIN LEVEL 7-10; Start 08/12 at 14:00 Docusate Sodium (Colace) 100 mg Q12H PRN PO CONSTIPATION; Start 08/12/16 at 14: 00 Magnesium Hydroxide (Milk Of Mag) 30 ml DAILY PRN PO CONSTIPATION; Start at 14:00 Sodium Biphosphate/ Sodium Phosphate (Fleet Enema) 133 ml DAILY PRN [place] CONSTIPATION; Start 08/12/16 at 14:00 Heparin Sodium (Porcine) (Heparin (5000 Units/0.5 ml)) 5,000 unit Q12 SC Last administered on 08/15/16 09:17; Admin Dose 5,000 UNIT; Start 08/12/16 at 21:00 Lorazepam 0.5 mg 0.5 mg Q6H PRN IV ANXIETY Last administered on 08/15/16 07:57 ; Admin Dose 0.5 MG; Start 08/12/16 at 14:00 Piperacillin Sod/ Tazobactam Sod (Zosyn 3.375gm/ 100 ml (Pmx)) 100 ml @ 200 mls /hr Q6 IVPB Last administered on 08/15/16 12:55; Admin Dose 200 MLS/HR; Start 08/12/16 at 18:00 Hydralazine HCl (Apresoline) 10 mg Q6H PRN IV ELEVATED BLOOD PRESSURE Last administered on 08/15/16 06:16; Admin Dose 10 MG; Start 08/12/16 at 14:00 Nitroglycerin (Nitroglycerin (Sl Tab) 0.4 Mg) 1 tab Q5M PRN SL ANGINA; Start at 14:00 Salmeterol Xinafoate/ Fluticasone (Advair 250/50 Diskus) 1 inh BID INH Last administered on 08/15/16 13:01; Admin Dose 1 INH; Start 08/12/16 at 21:00 Carbidopa/Levodopa (Sinemet (25/ 100)) 1 tab TID GTB Last administered on 12:55; Admin Dose 1 TAB; Start 08/12/16 at 21:00 Montelukast Sodium (Singulair) 10 mg HS GTB Last administered on 08/14/16 22:18 ; Admin Dose 10 MG; Start 08/12/16 at 21:00 Multivitamins (Thera-Plus) 5 ml DAILY GTB Last administered on 08/15/16 09:13; Admin Dose 5 ML; Start 08/13/16 at 09:00 Pramipexole (Mirapex) 1.5 mg TID NGT Last administered on 08/15/16 12:55; Admin Dose 1.5 MG; Start 08/12/16 at 21:00 Senna (Senokot) 2 tab HS PO Last administered on 08/14/16 22:20; Admin Dose 2 TAB; Start 08/12/16 at 21:00 Ascorbic Acid (Vitamin C) 500 mg BID GTB Last administered on 08/15/16 09:13; Admin Dose 500 MG; Start 08/12/16 at 21:00 Guaifenesin (Robitussin Liquid Cup) 200 mg Q6H PRN GTB COUGH; Start 08/12/16 at 17:30 Eye Lubricant (Artificial Tears Oph) 2 drop TID PRN BOTH EYES DRY EYES Last administered on 08/13/16 09:10; Admin Dose 2 DROP; Start 08/12/16 at 18:30 Clonidine (Catapres) 0.1 mg Q6H PRN GTB SBP >170 Last administered on 08/13/16 14:45; Admin Dose 0.1 MG; Start 08/12/16 at 19:00 Lansoprazole (Prevacid) 30 mg DAILY@06 GTB ; Start 08/16/16 at 06:00 GEGE HERNADEZ MD August 15, 2016 14:44
[2016-08-15 14:52] VITALS: BP 124/56; PULSE 103
[2016-08-15] MEDS ORDERED: FUROSEMIDE 40 MG INJ IV ONE (15:00)
[2016-08-15] MEDS: METOPROLOL 25 MG TAB GTB SCH (15:00)
[2016-08-15] MEDS ORDERED: POTASSIUM CHLORIDE 20 MEQ POWDER FOR ORAL SOLN GTB ONE (15:30)
[2016-08-15 17:00] VITALS: BP 122/75; PULSE 89; PULSE 92; RESP 18
[2016-08-15 17:45] VITALS: BP 122/69; RESP 18
--- NOTE | 2016-08-15 20:00 | RADRPT ---
Vent Rate: 122 bpm RR Interval: 0 msec [place] Interval: 138 msec QRS Duration: 80 msec QT Interval: 322 msec QTC Interval: 458 msec P-R-T [place]: 38 - 67 - 61 degrees Sinus tachycardia Left ventricular hypertrophy with repolarization abnormality Abnormal ECG Electronically Signed By: Thanh Waggoner [id number]
[2016-08-15 20:04] VITALS: PULSE 82
[2016-08-15 20:37] VITALS: BP 144/71; RESP 16
[2016-08-15] MEDS: SENNA TAB PO SCH (22:14)
[2016-08-16] VITALS (13 sets, daily range): BP systolic 115–133; BP diastolic 55–68; PULSE 64–88; RESP 16–20
[2016-08-16] MEDS: PRAMIPEXOLE 1 MG TAB NGT SCH ×4 (00:09→20:50)
[2016-08-16] MEDS: CARBIDOPA/LEVODOPA (25/100) TAB GTB SCH ×4 (00:09→20:49)
[2016-08-16] MEDS: MONTELUKAST 10 MG TAB GTB SCH ×2 (00:09→20:49)
[2016-08-16] MEDS: METOPROLOL 25 MG TAB GTB SCH ×3 (00:10→20:50)
[2016-08-16] MEDS: PIPER-TAZO 3.375 GM IV (PMX) 100 ML IVPB SCH ×4 (00:11→17:22)
[2016-08-16] MEDS: LANSOPRAZOLE 30 MG CAP GTB SCH (05:58)
[2016-08-16] MEDS: SALMETEROL/FLUTICASONE 250/50 INHA INH SCH ×2 (08:34→20:49)
[2016-08-16] MEDS: ALPRAZOLAM 0.25 MG TAB NGT PRN ×2 (08:35→17:22)
[2016-08-16] MEDS: HEPARIN 5,000 UNIT/0.5 ML VIAL SC SCH ×2 (08:36→20:52)
[2016-08-16] MEDS: MULTIVITAMINS 5 ML CUP GTB SCH (08:37)
[2016-08-16] MEDS: ASCORBIC ACID 500 MG TAB GTB SCH ×2 (08:37→20:49)
[2016-08-16] MEDS: ACETAMINOPHEN 325 MG TAB PO PRN ×2 (11:15→17:22)
[2016-08-16 11:42] LABS: ADD SCAN DIFF NO
[2016-08-16 11:49] LABS: ABNORMAL IP MESSAGE 1; EOSINOPHILS % 0.1 % (0.0-7.0); HEMATOCRIT 30.6 % (42.0-52.0); HEMOGLOBIN 9.8 g/dl (14.0-18.0); LYMPHOCYTES # 0.4 10^3/ul (0.8-2.9); MEAN CORPUSCULAR HEMOGLOBIN 31.4 pg (29.0-33.0); MEAN CORPUSCULAR VOLUME 98.1 fl (82.0-101.0); MEAN PLATELET VOLUME 10.2 fl (7.4-10.4); MONOCYTE # 0.5 10^3/ul (0.3-0.9); NEUTROPHIL # 9.3 10^3/ul (1.6-7.5); NEUTROPHILS % 90.5 % (39.0-77.0); PLATELET COUNT 112 10^3/UL (140-415); RED BLOOD COUNT 3.12 10^6/ul (4.70-6.10); WHITE BLOOD COUNT 10.3 10^3/ul (4.8-10.8)
[2016-08-16 12:05] LABS: CALCIUM 8.6 mg/dl (8.4-10.2); CREATININE 0.66 mg/dl (0.61-1.24); POTASSIUM 3.9 mmol/L (3.5-5.1)
--- NOTE | 2016-08-16 14:56 | PN ---
Date/Time of Note Date/Time of Note DATE: 08/16/16 TIME: 14:55 Assessment/Plan VTE Prophylaxis VTE Prophylaxis Intervention: heparin Lines/Catheters IV Catheter Type (from Nrs): Peripheral IV Urinary Cath still in place: Yes Reason Cath still needed: other (indicate) Assessment/Plan Assessment/Plan 1. Aspiration pneumonia, on zosyn, improving 2. Acute metabolic encephalopathy, sepsis related, resolved 3. Sepsis,improved 3. Parkinson disease. Continue to monitor for now. 4. Anxiety, xanax prn 5. Deep venous thrombosis prophylaxis: heparin Subjective 24 Hr Interval Summary Free Text/Dictation calm, no respiratory distress today Exam/Review of Systems Vital Signs Vitals Vital Signs Date Time Temp Pulse Resp B/P Pulse Ox O2 Delivery O2 Flow Rate FiO2 08/16/16 12:06 70 08/16/16 12:02 97.7 18 133/68 94 08/16/16 08:00 Nasal Cannula 3.0 Intake and Output 08/15/16 08/15/16 08/16/16 15:00 23:00 07:00 Intake Total 100 ml 1220 ml Output Total 1350 ml 360 ml Balance -1250 ml 860 ml Exam Constitutional: alert, oriented, well developed Psych: nl mood/affect, no complaints Head: atraumatic, normocephalic Eyes: EOMI, PERRL, nl conjunctiva, nl lids ENMT: nl external ears & nose, nl lips & teeth, nl nasal mucosa & septum Neck: non-tender, supple Respiratory: clear to auscultation, normal air movement, No congested cough, No crackles/rales, No diminished breath sounds, No intercostal retraction, No labored breathing, No other, No respirations, No tactile fremitus, No wheezing Cardiovascular: nl pulses, regular rate and rhythm, No S3, No S4, No bruits, No diastolic murmur, No edema, No gallop, No irregular rhythm, No jugular venous distention (JVD), No murmurs/extra sounds, No other, No rub, No systolic murmur Gastrointestinal: nl liver, spleen, non-tender, other (PEG), soft, No ascites, No bowel sounds, No distended, No firm, No hepatomegaly, No mass , No rebound or guarding, No splenomegaly, No surgical scars, No tender Musculoskeletal: nl extremities to inspection Extremities: normal pulses, No calf tenderness, No clubbing, No cyanosis, No edema, No other, No palpable cord, No pitting pedal edema, No tenderness Neurological: OCULAR CARE TECHNICIAN II-XII intact, nl mental status, nl speech, other (weak, tremor) Skin: nl turgor Lymph: nl lymph nodes Results Result Diagram: 08/16/16 1125 08/16/16 1112 Results 24 hrs Laboratory Tests Test 08/16/16 11:12 08/16/16 11:25 Sodium Level 137 Potassium Level 3.9 Chloride Level 103 Carbon Dioxide Level 30 Anion Gap 8 Blood Urea Nitrogen 24 H Creatinine 0.66 Glucose Level 135 Calcium Level 8.6 White Blood Count 10.3 # Red Blood Count 3.12 L Hemoglobin 9.8 L Hematocrit 30.6 L Mean Corpuscular Volume 98.1 Mean Corpuscular Hemoglobin 31.4 Mean Corpuscular Hemoglobin Concent 32.0 Red Cell Distribution Width 15.0 H Platelet Count 112 L Mean Platelet Volume 10.2 Neutrophils % 90.5 H Lymphocytes % 4.0 L Monocytes % 5.0 Eosinophils % 0.1 Basophils % 0.0 Nucleated Red Blood Cells % 0.0 Neutrophils # 9.3 H Lymphocytes # 0.4 L Monocytes # 0.5 Eosinophils # 0.0 Basophils # 0.0 Nucleated Red Blood Cells # 0.0 Medications Medications Current Medications Ondansetron HCl (Zofran Inj) 4 mg Q6H PRN IV NAUSEA AND/OR VOMITING; Start at 14:00 Acetaminophen (Tylenol Tab) 650 mg Q6H PRN PO PAIN LEVEL 1-3 OR FEVER Last administered on 08/16/16 11:15; Admin Dose 650 MG; Start 08/12/16 at 14:00 Acetaminophen/ Hydrocodone Bitart ([place] (5/325)) 1 tab Q6H PRN PO MODERATE PAIN LEVEL 4-6 Last administered on 08/12/16 18:05; Admin Dose 1 TAB; Start at 14:00 Morphine Sulfate (morphine) 2 mg Q4H PRN IV SEVERE PAIN LEVEL 7-10; Start 08/12 at 14:00 Docusate Sodium (Colace) 100 mg Q12H PRN PO CONSTIPATION; Start 08/12/16 at 14: 00 Magnesium Hydroxide (Milk Of Mag) 30 ml DAILY PRN PO CONSTIPATION; Start at 14:00 Sodium Biphosphate/ Sodium Phosphate (Fleet Enema) 133 ml DAILY PRN [place] CONSTIPATION; Start 08/12/16 at 14:00 Heparin Sodium (Porcine) (Heparin (5000 Units/0.5 ml)) 5,000 unit Q12 SC Last administered on 08/16/16 08:36; Admin Dose 5,000 UNIT; Start 08/12/16 at 21:00 Lorazepam 0.5 mg 0.5 mg Q6H PRN IV ANXIETY Last administered on 08/15/16 07:57 ; Admin Dose 0.5 MG; Start 08/12/16 at 14:00 Piperacillin Sod/ Tazobactam Sod (Zosyn 3.375gm/ 100 ml (Pmx)) 100 ml @ 200 mls /hr Q6 IVPB Last administered on 08/16/16 12:22; Admin Dose 200 MLS/HR; Start 08/12/16 at 18:00 Hydralazine HCl (Apresoline) 10 mg Q6H PRN IV ELEVATED BLOOD PRESSURE Last administered on 08/15/16 06:16; Admin Dose 10 MG; Start 08/12/16 at 14:00 Nitroglycerin (Nitroglycerin (Sl Tab) 0.4 Mg) 1 tab Q5M PRN SL ANGINA; Start at 14:00 Salmeterol Xinafoate/ Fluticasone (Advair 250/50 Diskus) 1 inh BID INH Last administered on 08/16/16 08:34; Admin Dose 1 INH; Start 08/12/16 at 21:00 Carbidopa/Levodopa (Sinemet (25/ 100)) 1 tab TID GTB Last administered on 12:20; Admin Dose 1 TAB; Start 08/12/16 at 21:00 Montelukast Sodium (Singulair) 10 mg HS GTB Last administered on 08/16/16 00:09 ; Admin Dose 10 MG; Start 08/12/16 at 21:00 Multivitamins (Thera-Plus) 5 ml DAILY GTB Last administered on 08/15/16 09:13; Admin Dose 5 ML; Start 08/13/16 at 09:00 Pramipexole (Mirapex) 1.5 mg TID NGT Last administered on 08/16/16 12:20; Admin Dose 1.5 MG; Start 08/12/16 at 21:00 Senna (Senokot) 2 tab HS PO Last administered on 08/15/16 22:14; Admin Dose 2 TAB; Start 08/12/16 at 21:00 Ascorbic Acid (Vitamin C) 500 mg BID GTB Last administered on 08/16/16 08:37; Admin Dose 500 MG; Start 08/12/16 at 21:00 Guaifenesin (Robitussin Liquid Cup) 200 mg Q6H PRN GTB COUGH; Start 08/12/16 at 17:30 Eye Lubricant (Artificial Tears Oph) 2 drop TID PRN BOTH EYES DRY EYES Last administered on 08/13/16 09:10; Admin Dose 2 DROP; Start 08/12/16 at 18:30 Clonidine (Catapres) 0.1 mg Q6H PRN GTB SBP >170 Last administered on 08/13/16 14:45; Admin Dose 0.1 MG; Start 08/12/16 at 19:00 Lansoprazole (Prevacid) 30 mg DAILY@06 GTB Last administered on 08/16/16 05:58 ; Admin Dose 30 MG; Start 08/16/16 at 06:00 Metoprolol Tartrate (Lopressor) 25 mg BID GTB Last administered on 08/16/16 08: 36; Admin Dose 25 MG; Start 08/15/16 at 15:00 Alprazolam (Xanax) 0.25 mg TID PRN NGT agitation Last administered on 08/16/16 08:35; Admin Dose 0.25 MG; Start 08/15/16 at 15:00 GEGE HERNADEZ MD August 16, 2016 14:56
--- NOTE | 2016-08-16 17:16 | RADRPT ---
Echocardiogram Report Patient Name: ELMO SHETH Gender: Male Date: 1930 Study Date: 15-Aug-2016 Moisture Tester: CRISTIANE Location: 2266 Ref. Physician: GEGE HERNADEZ Quality: Technically Difficult Study Procedures: Transthoracic echocardiogram with complete 2D, M-Mode, and doppler examination. Indications: Congestive Heart Failure. 2D/M Mode Doppler Measurement Value Normal Ranges Measurement Value Normal Ranges LVIDd 2D 4.0 3.5 - 5.6 cm LVOT Peak Ruddy 1.0 m/sec LVIDs 2D 2.8 2.1 - 4.1 cm LVOT Peak PG 4.0 mmHg FS 2D 29.9 % MV E Peak Ruddy 1.3 m/sec LVPWd 2D 1.4 0.6 - 1.1 cm MV A Peak Ruddy 1.0 m/sec IVSd 2D 1.4 0.6 - 1.1 cm MV E/A 1.3 IVS/LVPW 2D 1.0 MV Decel Time 173 msec AoR Diam 2D 2.8 2.0 - 3.7 cm MV E/A 1.3 LA/Ao 2D 1 0 - 1 TR Peak Ruddy 3.7 m/sec EDV 2D 64.5 cm3 TR Peak PG 55.0 mmHg ESV 2D 22.2 cm3 RVSP 58.0 mmHg LA Dimen 2D 2.7 2.3 - 4.0 cm Findings Left Ventricle: Normal left ventricular cavity size. Mild concentric left ventricular hypertrophy. Mild global left ventricular systolic dysfunction. Mild left ventricular systolic dysfunction. Ejection fraction is visually estimated at 45 %. Tissue Doppler/Mitral Doppler indices are consistent with impaired relaxation (Stage I diastolic dysfunction). Right Ventricle: Normal right ventricular size. Normal right ventricular systolic function. Left Atrium: The left atrium is normal in size. Right Atrium: The right atrium is normal in size. Mitral Valve: Mitral valve leaflets appear mildly thickened. Mild mitral annular calcification. Trace mitral regurgitation. Aortic Valve: No hemodynamically significant aortic stenosis by doppler. Aortic cusps appear mildly calcified. Mild aortic valve regurgitation. Tricuspid Valve: Normal appearance of the tricuspid valve. Estimated peak PA systolic pressure 58 mmHg. There is moderate tricuspid regurgitation. Pulmonic Valve: Normal pulmonic valve appearance. Pericardium: Normal pericardium with no significant pericardial effusion. Pleural effusion seen. Aorta: Normal aortic root. IVC: Normal size and normal respiratory collapse consistent with normal right atrial pressure. Conclusions 1.Normal left ventricular cavity size. Mild concentric left ventricular hypertrophy. Mild global left ventricular systolic dysfunction. Mild left ventricular systolic dysfunction. Ejection fraction is visually estimated at 45 %. Tissue Doppler/Mitral Doppler indices are consistent with impaired relaxation (Stage I diastolic dysfunction). 2.Normal right ventricular size. Normal right ventricular systolic function. 3.The left atrium is normal in size. 4.The right atrium is normal in size. 5.No hemodynamically significant aortic stenosis by doppler. Mild aortic valve regurgitation. 6.Trace mitral regurgitation. 7.Estimated peak PA systolic pressure 58 mmHg. There is moderate tricuspid regurgitation. 8.Normal pericardium with no significant pericardial effusion. Pleural effusion seen. Electronically Signed By: Aries Dc 16-Aug-2016 17:15:23 -0700 Patient Name: ELMO SHETH Study Date: 15-Aug-2016 [id number]
[2016-08-16] MEDS: SENNA TAB PO SCH (20:49)
[2016-08-17] VITALS (11 sets, daily range): BP systolic 127–177; BP diastolic 61–86; PULSE 68–103; RESP 20–22
[2016-08-17] MEDS: PIPER-TAZO 3.375 GM IV (PMX) 100 ML IVPB SCH ×4 (00:07→17:24)
[2016-08-17] MEDS: ALPRAZOLAM 0.25 MG TAB NGT PRN (02:55)
[2016-08-17] MEDS: LANSOPRAZOLE 30 MG CAP GTB SCH (05:55)
[2016-08-17] MEDS: HEPARIN 5,000 UNIT/0.5 ML VIAL SC SCH (08:40)
[2016-08-17] MEDS: PRAMIPEXOLE 1 MG TAB NGT SCH ×3 (08:40→20:56)
[2016-08-17] MEDS: SALMETEROL/FLUTICASONE 250/50 INHA INH SCH (08:40)
[2016-08-17] MEDS: CARBIDOPA/LEVODOPA (25/100) TAB GTB SCH ×3 (08:41→20:57)
[2016-08-17] MEDS: METOPROLOL 25 MG TAB GTB SCH ×2 (08:41→20:57)
[2016-08-17] MEDS: MULTIVITAMINS 5 ML CUP GTB SCH (08:41)
[2016-08-17] MEDS: ASCORBIC ACID 500 MG TAB GTB SCH (08:41)
[2016-08-17 10:29] LABS: ADD SCAN DIFF NO
[2016-08-17 10:33] LABS: ABNORMAL IP MESSAGE 1; BASOPHILS % 0.1 % (0.0-2.0); EOSINOPHILS # 0.1 10^3/ul (0.0-0.5); HEMATOCRIT 31.1 % (42.0-52.0); HEMOGLOBIN 9.7 g/dl (14.0-18.0); LYMPHOCYTES # 0.5 10^3/ul (0.8-2.9); LYMPHOCYTES % 5.2 % (15.0-51.0); MEAN CORPUSCULAR HEMOGLOBIN 30.8 pg (29.0-33.0); MEAN CORPUSCULAR HGB CONC 31.2 g/dl (32.0-37.0); MEAN CORPUSCULAR VOLUME 98.7 fl (82.0-101.0); MEAN PLATELET VOLUME 10.7 fl (7.4-10.4); MONOCYTE # 0.6 10^3/ul (0.3-0.9); MONOCYTES % 6.5 % (0.0-11.0); NEUTROPHIL # 7.6 10^3/ul (1.6-7.5); NEUTROPHILS % 86.9 % (39.0-77.0); PLATELET COUNT 112 10^3/UL (140-415); RED BLOOD COUNT 3.15 10^6/ul (4.70-6.10); RED CELL DISTRIBUTION WIDTH 15.3 % (11.5-14.5); WHITE BLOOD COUNT 8.7 10^3/ul (4.8-10.8)
[2016-08-17 10:50] LABS: CALCIUM 8.3 mg/dl (8.4-10.2); CREATININE 0.6 mg/dl (0.61-1.24); POTASSIUM 4.1 mmol/L (3.5-5.1)
[2016-08-17] MEDS ORDERED: ALPR0.254 NGT (13:31)
[2016-08-17] MEDS ORDERED: MULT473L10 GTB (13:31)
[2016-08-17] MEDS ORDERED: AMOX1TAB10 PO (13:31)
[2016-08-17] MEDS ORDERED: IPRA3AMP HHN (13:31)
[2016-08-17] MEDS ORDERED: ADV25050 INH (13:31)
[2016-08-17] MEDS ORDERED: LANS30CA GTB (13:31)
[2016-08-17] MEDS ORDERED: HEP5KI SC (13:31)
[2016-08-17] MEDS ORDERED: SIN25100 GTB (13:31)
[2016-08-17] MEDS ORDERED: METO-448 GTB (13:31)
[2016-08-17] MEDS ORDERED: PRAM1TAB5 NGT (13:31)
[2016-08-17] MEDS ORDERED: ASC500 GTB (13:31)
--- NOTE | 2016-08-17 13:40 | DS ---
Date/Time of Note Date/Time of Note DATE: 08/17/16 TIME: 13:35 Discharge Summary Admission/Discharge Info Admit Date/Time Aug 12, 2016 at 12:17 Discharge Date/Time Final Diagnosis 1. Aspiration pneumonia, improved, on augmentin 2. Acute metabolic encephalopathy, sepsis related, resolved 3. Sepsis,improved 3. Parkinson disease. Continue to monitor for now. 4. Anxiety, xanax prn Patient Condition: Stable Hospital Course This is an 86-year-old male with past medical history of severe Parkinson disease and G-tube placement, who lives in a longterm who was brought over because of altered mental status to the ER. Most of the information obtained from the ER documentation as the patient is not able to provide a full HPI or review of systems. Apparently it is unclear what time the patient had a change in mental status, as the nursing staff had apparently not seen him in a few weeks. When he came to the ER today, he had a temperature 101.2. CXR with congestion like changes. Patient is treated with antibiotics zosyn for aspiration pneumonia. Symptoms improved. Patient is full alert and oriented and afebrile. Patient had an episode of respiratory distress, anxious hypoxia, tachycardiac and with hypertension indicates another episode of aspiration. Those symptoms soon resolved with continuation of zosyn and nebulizer. Family is aware of the risk of recurrent aspiration. Home Meds Active Scripts Amoxicillin/Potassium Clav (Amox-Clav 875-125 mg Tablet) 875-125 mg Tab, 1 TAB PO BID for 7 Days, #20 TAB Prov:GEGE HERNADEZ MD 08/17/16 Multivitamins* (Multi-Delyn* Liq) 473 Ml Liquid, 5 ML GTB DAILY for 30 Days Prov:GEGE HERNADEZ MD 08/17/16 Ascorbic Acid (Vitamin C) 500 Mg Tab, 500 MG GTB BID for 30 Days, TAB Prov:GEGE HERNADEZ MD 08/17/16 Lansoprazole* (Lansoprazole*) 30 Mg Capsule.dr 30 MG GTB DAILY@06 for 30 Days Prov:GEGE HERNADEZ MD 08/17/16 Salmeterol Xinaf/Fluticasone* (Advair*) 250-50 Diskus Inhaler, 1 INH INH BID for 30 Days Prov:GEGE HERNADEZ MD 08/17/16 Pramipexole* (Mirapex*) 1 Mg Tablet, 1.5 MG NGT TID for 20 Days, TAB Prov:GEGE HERNADEZ MD 08/17/16 Heparin Sod (Porcine)* (Heparin*) 5,000 Unit/0.5 Ml Soln, 5000 UNIT SC Q12 for 10 Days Prov:GEGE HERNADEZ MD 08/17/16 Alprazolam* (Alprazolam*) 0.25 Mg Tablet, 0.25 MG NGT TID Y for agitation for 30 Days, TAB Prov:GEGE HERNADEZ MD 08/17/16 Carbidopa-Levodopa* (Sinemet*) 25-100 Mg Tab, 1 TAB GTB TID for 30 Days, TAB Prov:GEGE HERNADEZ MD 08/17/16 Metoprolol Tartrate* (Lopressor*) 25 Mg Tab, 25 MG GTB BID for 60 Days, TAB Prov:GEGE HERNADEZ MD 08/17/16 Ipratropium-Albuterol (Ipratropium-Albuterol) 0.5-3 Mg/3 Ml Ampul.neb, 3 ML HHN Q4H RESP THERAPY Y for SHORTNESS OF BREATH for 10 Days Prov:GEGE HERNADEZ MD 08/17/16 Follow-up Plan PCP in one week Pending Labs Laboratory Tests Test 08/17/16 10:15 White Blood Count 8.710^3/ul (4.8-10.8) Red Blood Count 3.1510^6/ul (4.70-6.10) Hemoglobin 9.7g/dl (14.0-18.0) Hematocrit 31.1% (42.0-52.0) Mean Corpuscular Volume 98.7fl (82.0-101.0) Mean Corpuscular Hemoglobin 30.8pg (29.0-33.0) Mean Corpuscular Hemoglobin Concent 31.2g/dl (32.0-37.0) Red Cell Distribution Width 15.3% (11.5-14.5) Platelet Count 95025^3/UL (140-415) Mean Platelet Volume 10.7fl (7.4-10.4) Neutrophils % 86.9% (39.0-77.0) Lymphocytes % 5.2% (15.0-51.0) Monocytes % 6.5% (0.0-11.0) Eosinophils % 1.0% (0.0-7.0) Basophils % 0.1% (0.0-2.0) Nucleated Red Blood Cells % 0.0/100WBC (0.0-0.0) Neutrophils # 7.610^3/ul (1.6-7.5) Lymphocytes # 0.510^3/ul (0.8-2.9) Monocytes # 0.610^3/ul (0.3-0.9) Eosinophils # 0.110^3/ul (0.0-0.5) Basophils # 0.010^3/ul (0.0-0.1) Nucleated Red Blood Cells # 0.010^3/ul (0.0-0.0) Sodium Level 138mmol/L (135-144) Potassium Level 4.1mmol/L (3.5-5.1) Chloride Level 104mmol/L (97-110) Carbon Dioxide Level 30mmol/L (21-31) Anion Gap 8 (8-16) Blood Urea Nitrogen 23mg/dl (7-20) Creatinine 0.60mg/dl (0.61-1.24) Glucose Level 121mg/dl (70-220) Calcium Level 8.3mg/dl (8.4-10.2) GEGE HERNADEZ MD August 17, 2016 13:39
--- NOTE | 2016-08-17 16:32 | RADRPT ---
PROCEDURE: Video-fluoroscopy swallowing study. CLINICAL INDICATION: Dysphagia. History of Parkinson's disease. TECHNIQUE: Fluoroscopic guided video swallowing study was done in conjunction with the speech ther apist. The study was confined to the oral, pharyngeal, and cervical phases of the swallowing mechani sm. 2.0 minutes of fluoroscopy time was used. COMPARISON: No prior study is available for comparison. FINDINGS: There is silent aspiration during swallowing. IMPRESSION: 1. Abnormal study with silent aspiration during swallowing. 2. Please refer to the speech therapist's recommendations for future feedings. RPTAT: QQ .Beka Roth MD, MD Date Time Electronically viewed and signed by .Beka Roth MD, on 08/17/2016 16:32 .R/
[2016-08-17] MEDS: hydrALAzine 20 MG INJ IV PRN (18:54)
[2016-08-17] MEDS: LORAZEPAM 2 MG INJ IV PRN (20:31)
[2016-08-17] MEDS: MONTELUKAST 10 MG TAB GTB SCH (20:56)
[2016-08-17] MEDS: SENNA TAB PO SCH (20:57)
== END 2016-08-17 21:33 | DRG 871 ==
LOC: EDSEX 08:08 → E/R 08:08 → PP2 12:17 → MS4 08-15 16:45
PROVIDERS: ADMIT Hospitalist; ATTEND Hospitalist
DX: A41.9 Sepsis, unspecified organism (principal); G93.41 Metabolic encephalopathy; J69.0 Pneumonitis due to inhalation of food and vomit; G20 Parkinson's disease; F41.9 Anxiety disorder, unspecified
CPT/HCPCS: 36415; 70450; 71010; 74230; 80048; 80053; 80061; 81003; 83036; 83605; 83735; 84100; 84439; 84443; 84484; 85025; 85610; 87040; 87081; 87086; 92526; 92610; 92611; 93005; 93306; 94640; 94664; 96374; 97162; 97166; J1940; C9113; J0360; J0692; J1644; J2060; J2543; J3370; J7030; J7050

== ENCOUNTER 2018-07-04 14:47 | Emergency (ER) | payer OTHER ==
[~2018-07-04] VITALS: Ht 157.5 cm; Wt 54.5 kg
[~2018-07-04 14:47] MED LIST: ADV25050 INH; ALPR0.254 NGT; AMOX1TAB10 PO; ASC500 GTB; IPRA3AMP29 HHN; LANS30CA GTB; METO-448 GTB; MULT473L10 GTB; PRAM1TAB5 NGT; SIN25100 GTB; [UNRECOGNIZED DRUG - CODE] SC
[2018-07-04 14:50] VITALS: Ht 157.5 cm; Wt 54.5 kg
[2018-07-04] MEDS ORDERED: VANCOMYCIN 1 GM (PMX) 250 ML IVPB STA (14:52)
[2018-07-04] MEDS ORDERED: SODIUM CHLORIDE 0.9% 1L BAG IV* STA (14:52)
[2018-07-04] MEDS ORDERED: CEFEPIME 2GM/50 ML (PMX) 50 ML IVPB STA (14:52)
[2018-07-04] MEDS ORDERED: DOPamine-D5W 1.6 MG/ML 250 ML IV ONE (15:00)
[2018-07-04] MEDS ORDERED: NORepinephrine 8MG/250 ML (PMX 250 ML IV ONE ×2 (15:00)
--- NOTE | 2018-07-04 15:34 | ERD ---
ER Documentation Chief Complaint Chief Complaint BIB [id number] fr [facility]: PEA; ROSC. HPI 87-year-old male brought in by ambulance from his nursing home facility after he had an unwitnessed cardiac arrest. Reportedly the patient was discovered by the nursing staff. He was last seen normal about half an hour prior. Ambulance was called. Patient was in PEA and was pulseless. Compressions were started and epinephrine was given. He had return of spontaneous circulation. Patient does have chronic illnesses and is trach, G-tube, and vent dependent. He does have a history of Parkinson's disease. Per his paperwork, he is full code with all interventions ROS Unable to obtain due to altered mental status Medications Home Meds Reported Medications Ascorbic Acid (Vitamin C) 500 Mg Tab, 500 MG GTB BID, TAB 07/04/18 Cran/Vitc/Mannose/Inulin/Brom (Uti-Stat Liquid) 3,875 Mg/30 Ml Liquid, 30 ML GTB DAILY 07/04/18 Acetaminophen* (Tylenol*) 325 Mg Tablet, 650 MG GTB Q6H PRN for FOR TRACH CHANGE, TAB 07/04/18 Tramadol Hcl* (Ultram*) 50 Mg Tablet, 50 MG GTB BID PRN for PAIN, TAB 07/04/18 Thiamine* (Vitamin B-1*) 100 Mg Tablet, 100 MG GTB BID, TAB 07/04/18 Levothyroxine Sodium* (Synthroid*) 125 Mcg Tablet, 62.5 MCG GTB BEFORE BREAKFAST, #30 TAB 07/04/18 Metoclopramide* (Reglan*) 10 Mg/10 Ml Soln, 10 ML GTB Q8H, ML 07/04/18 Amino Acids/Protein Hydrolys (PRO-STAT LIQUID) 30 Ml Liquid.pkt, 30 ML GTB TID SUGAR FREE 07/04/18 Prednisone* (Prednisone*) 10 Mg Tab, 10 MG GTB Q OTHER DAY, TAB 07/04/18 Losartan Potassium* (Losartan Potassium*) 50 Mg Tablet, 50 MG GTB BID, TAB HOLD FOR SBP BELOW 110 07/04/18 Phosphorus #1* (K-Phos Neutral*) 250 Mg Tablet, 250 MG GTB BID, TAB 07/04/18 Folic Acid* (Folic Acid*) 1 Mg Tablet, 5 MG GTB DAILY, TAB 07/04/18 Fluticasone Propionate* (Fluticasone Propionate* Nasal) 50 Mcg/Sycamore - 16 Gm Sycamore.susp, 2 SPRAYS NASAL DAILY, #1 BOTTLE TO EACH NOSTRIL 07/04/18 Ferrous Sulfate* (Ferrous Sulfate*) 220 Mg/5 Ml Solution, 7.5 ML GTB DAILY, ML 07/04/18 Cranberry Extract (Cranberry) 425 Mg Capsule, 425 MG GTB DAILY, CAP 07/04/18 Docusate Sodium* (Colace*) 100 Mg Capsule, 100 MG GTB QHS, #30 CAP 07/04/18 Chlorhexidine Gluconate (Periogard) 473 Ml Mouthwash, 15 ML MM Q12H, BOTTLE 07/04/18 Carbidopa/Levodopa (Carbidopa-Levodopa 25-100 Tab) 1 Each Tablet, 1 EACH GTB Q8H, TAB 07/04/18 Amiodarone Hcl* (Amiodarone Hcl*) 100 Mg Tablet, 100 MG GTB DAILY, #30 TAB HOLD FOR HR BELOW 60 07/04/18 Albuterol Sulfate* (Albuterol Sulfate* Neb) 0.083%-3 Ml Neb, 2.5 MG NEB Q6H PRN for RESPIRATORY DISTRESS, #30 VIAL 07/04/18 Albuterol Sulfate* (Albuterol Sulfate* Neb) 0.083%-3 Ml Neb, 2.5 MG NEB Q3H PRN for WHEEZING AND SOB, #30 VIAL 07/04/18 Discontinued Reported Medications Metoclopramide Hcl (Metoclopramide Hcl Soln) 5 Mg/5 Ml Solution, 10 ML GTB Q8H, ML 07/04/18 Discontinued Scripts Amoxicillin/Potassium Clav (Amox-Clav 875-125 mg Tablet) 875-125 mg Tab, 1 TAB PO BID for 7 Days, #20 TAB Prov:GEGE HERNADEZ MD 08/17/16 Multivitamins* (Multi-Delyn* Liq) 473 Ml Liquid, 5 ML GTB DAILY for 30 Days Prov:GEGE HERNADEZ MD 08/17/16 Ascorbic Acid (Vitamin C) 500 Mg Tab, 500 MG GTB BID for 30 Days, TAB Prov:GEGE HERNADEZ MD 08/17/16 Lansoprazole* (Lansoprazole*) 30 Mg Capsule.dr, 30 MG GTB DAILY@06 for 30 Days Prov:GEGE HERNADEZ MD 08/17/16 Salmeterol Xinaf/Fluticasone* (Advair*) 250-50 Diskus Inhaler, 1 INH INH BID for 30 Days Prov:GEGE HERNADEZ MD 08/17/16 Pramipexole* (Mirapex*) 1 Mg Tablet, 1.5 MG NGT TID for 20 Days, TAB Prov:GEGE HERNADEZ MD 08/17/16 Heparin Sod (Porcine)* (Heparin*) 5,000 Unit/0.5 Ml Soln, 5000 UNIT SC Q12 for 10 Days Prov:GEGE HERNADEZ MD 08/17/16 Alprazolam* (Alprazolam*) 0.25 Mg Tablet, 0.25 MG NGT TID PRN for agitation for 30 Days, TAB Prov:GEGE HERNADEZ MD 08/17/16 Carbidopa-Levodopa* (Sinemet*) 25-100 Mg Tab, 1 TAB GTB TID for 30 Days, TAB Prov:GEGE HERNADEZ MD 08/17/16 Metoprolol Tartrate* (Lopressor*) 25 Mg Tab, 25 MG GTB BID for 60 Days, TAB Prov:GEGE HERNADEZ MD 08/17/16 Ipratropium-Albuterol (Ipratropium-Albuterol) 0.5-3 Mg/3 Ml Ampul.neb, 3 ML HHN Q4H RESP THERAPY PRN for SHORTNESS OF BREATH for 10 Days Prov:GEGE HERNADEZ MD 08/17/16 Allergies Allergies: Coded Allergies: levofloxacin (Verified Allergy, Unknown, tr, 07/04/18) PMhx/Soc Medical and Surgical Hx: Unable to obtain History of Surgery: Yes (prostectomy (20 years ago) ) Anesthesia Reaction: No Hx Neurological Disorder: Yes (Parkinson's disease) Hx Respiratory Disorders: Yes (Hx: emphysema) Hx Cardiac Disorders: No Hx Psychiatric Problems: No Hx Miscellaneous Medical Probl: No Hx Alcohol Use: No Hx Substance Use: No Hx Tobacco Use: Yes FmHx Unable to obtain Physical Exam Vitals Vital Signs Date Temp Pulse Resp B/P (MAP) Pulse Ox O2 O2 Flow FiO2 Time Delivery Rate 07/04/18 119 24 63/33 (43) 55 Mechanical 19:30 Ventilator Trach Collar 07/04/18 136 21 128/76 72 Mechanical 19:15 (93) Ventilator Trach Collar 07/04/18 131 24 82 100 19:15 07/04/18 120 16 155/68 78 Mechanical 19:13 (97) Ventilator Trach Collar 07/04/18 97.3 64 24 54/32 (39) 65 18:55 07/04/18 99 31 70/42 (51) 56 Mechanical 18:45 Ventilator Trach Collar 07/04/18 118 26 77/43 (54) 65 Mechanical 18:30 Ventilator Trach Collar 07/04/18 97.1 122 23 101/81 73 Mechanical 18:15 (88) Ventilator T Tube 07/04/18 97.1 126 23 96/51 (66) 58 18:10 07/04/18 97.0 123 23 108/44 67 Mechanical 18:00 (65) Ventilator T Tube 07/04/18 96.7 124 26 108/44 73 17:55 (65) 07/04/18 97.0 122 25 99/48 (65) 67 Mechanical 17:45 Ventilator T Tube 07/04/18 120 24 94/50 (65) 67 Mechanical 17:35 Ventilator 07/04/18 97.1 113 30 94/55 (68) 67 Mechanical 17:15 Ventilator T Tube 07/04/18 124 24 95 100 17:15 07/04/18 116 29 107/45 59 17:00 (65) 07/04/18 97.7 113 24 119/49 58 Mechanical 16:45 (72) Ventilator T Tube 07/04/18 97.7 107 31 121/65 93 Mechanical 16:30 (83) Ventilator T Tube 07/04/18 97.7 104 24 95/49 (64) 93 Mechanical 16:15 Ventilator T Tube 07/04/18 116 38 94/55 (68) 58 Mechanical 16:00 Ventilator 07/04/18 97.7 115 33 83/57 (66) 91 Mechanical 15:45 Ventilator T Tube 07/04/18 114 24 86/56 (66) 59 Mechanical 15:30 Ventilator 07/04/18 113 24 95 100 15:15 07/04/18 97.7 117 24 82/42 (55) 95 Mechanical 15:15 Ventilator T Tube 07/04/18 97.7 110 24 64/41 (49) 93 Mechanical 15:05 Ventilator T Tube 07/04/18 96.4 95 18 39/27 (31) 72 14:50 Physical Exam INITIAL VITAL SIGNS: Reviewed by me GENERAL: Patient is lying on gurney. Unresponsive, chronically ill-appearing HEAD: Normocephalic EYES: PERRL. No icterus. No pallor. Lids, lashes, and conjunctiva clear. ENT: Mucous membranes dry, no erythema or tonsillar exudates. Airway patent. NECK: Trach in place. Supple. No masses. Full range of motion. No masses RESPIRATORY: Diminished breath sounds bilaterally, no wheezing, rales, or rhonchi.. CV: Regular rate and rhythm. No murmurs, No rubs or gallops. ABDOMEN: G-tube in place, leaking yellow fluid. Soft, non-distended, non- tender. No guarding. No rebound. No pulsatile mass. Bowel sounds normal. : Arnold in place. External genitals appear normal . EXTREMITIES: Muscle atrophy in all 4 extremities. No edema. No clubbing or cyanosis. Pulses symmetric. No deficits or delays. Calves non-tender. No cords. SKIN: Warm and dry. Decreased turgor. No obvious rash, petechiae or purpura. NEUROLOGIC: Eyes open, but unresponsive to noxious stimuli. GCS4. Result Diagram: 07/04/18 1537 07/04/18 1536 Results 24 hrs Laboratory Tests Test 07/04/18 14:52 07/04/18 15:36 07/04/18 15:37 07/04/18 15:58 Blood Gas Blood arterial Specimen Source Arterial Blood 07/04/2018 4:19:3 Date Drawn 6 PM Arterial Blood 7.265 pH (Temp corrected) Arterial Blood 68.0 mmhg pCO2 (Temp correct) Arterial Blood 58.3 mmHG pO2 (Temp corrected) Arterial Blood 30.2 mmol/L HCO3 Arterial Blood 2.4 mmol/L Base Excess Arterial Blood 83.9 mmHG Oxygen Saturatio n Aneesh Test ACCEPTAB Arterial Blood Left Radial Gas Puncture Site Arterial 0.2 % Blood Carboxyhem oglobin Arterial Blood 0.3 % Methemoglobin Blood Gas A-a O2 586.7 mmHg Differential Oxyhemoglobin 83.5 % Percent Blood Gas 37.0 C Temperature Blood Gas 24.0 Respiration Rate Blood Gas Actual 24 Respiration Rate Blood Gas VENT - AC Modality FiO2 100.0 % Blood Gas Tidal 450.0 mL Volume Blood Gas Low 10.0 cmH2O PEEP Setting Blood Gas [place] Critical Value Read Back Blood Gas MDA Notified Whom Blood Gas 07/04/2018 4:22:2 Notified Time 7 PM Prothrombin Time 15.8 Sec Prothrombin Time 1.2 Ratio INR 1.25 International Normalized Ratio Activated 32.9 Sec Partial Thrombop last Time Sodium Level 146 mmol/L Potassium Level 3.3 mmol/L Chloride Level 99 mmol/L Carbon Dioxide 28 mmol/L Level Anion Gap 19 Blood Urea 48 mg/dl Nitrogen Creatinine 0.92 mg/dl Est Glomerular mL/min Filtrat Rate mL/min Glucose Level 28 mg/dl Calcium Level 8.4 mg/dl Phosphorus Level 7.8 mg/dl Magnesium Level 2.8 mg/dl Total Bilirubin 0.3 mg/dl Direct Bilirubin 0.00 mg/dl Indirect 0.3 mg/dl Bilirubin Aspartate Amino 101 IU/L Transf (AST/SGOT ) Alanine 54 IU/L Aminotransferase (ALT/SGPT) Alkaline 92 IU/L Phosphatase Troponin I 0.067 ng/ml Total Protein 6.9 g/dl Albumin 2.8 g/dl Globulin 4.10 g/dl Albumin/Globulin 0.68 Ratio Lipase 319 U/L White Blood 15.6 10^3/ul Count Red Blood Count 2.59 10^6/ul Hemoglobin 7.8 g/dl Hematocrit 27.8 % Mean Corpuscular 107.3 fl Volume Mean Corpuscular 30.1 pg Hemoglobin Mean Corpuscular 28.1 g/dl Hemoglobin Hali nt Red Cell 15.0 % Distribution Width Platelet Count 280 10^3/UL Mean Platelet 9.0 fl Volume Immature 3.600 % Granulocytes % Neutrophils % % Segmented 54 % Neutrophils % (Manual) Band Neutrophils 35 % % (Manual) Lymphocytes % % Lymphocytes % 1 % (Manual) Monocytes % % Monocytes % 4 % (Manual) Eosinophils % % Basophils % % Metamyelocytes % 3 % (manual) Myelocytes % 3 % (Manual) Nucleated Red 1 % Blood Cells % Immature 0.570 10^3/ul Granulocytes # Neutrophils # 10^3/ul Neutrophils # 9.3 10^3/ul (Manual) Band Neutrophils 5.4 10^3/ul # Lymphocytes 0.1 10^3/ul (Manual) Lymphocytes # 10^3/ul Monocytes # 10^3/ul Monocytes # 0.6 10^3/ul (Manual) Eosinophils # 10^3/ul Basophils # 10^3/ul Metamyelocytes # 0.4 10^3/ul Myelocytes # 0.4 10^3/ul Nucleated Red 10^3/ul Blood Cells # Platelet NORMAL Estimate Polychromasia 1+ Hypochromasia 1+ Lactic Acid 13.8 mmol/L Level Test 07/04/18 16:58 07/04/18 18:14 07/04/18 19:25 07/04/18 19:33 Bedside Glucose 161 mg/dL 89 mg/dL 48 mg/dL Lactic Acid 15.4 mmol/L Level Current Medications Medications Dose Sig/Dieudonne Start Time Status Last (Trade) Ordered Route PRN Stop Time Admin Dose Reason Admin Sodium 1,200 ml BOLUS OVER 2 07/04/18 DC 07/04/18 Chloride HOURS STAT 14:52 15:00 (NS) IV* 07/04/18 14:56 Cefepime HCl 50 ml @ ONCE STAT 07/04/18 DC 07/04/18 100 mls/hr IVPB 14:52 16:55 07/04/18 15:21 Vancomycin 250 ml @ ONCE STAT 07/04/18 DC 07/04/18 HCl 125 mls/hr IVPB 14:52 17:28 07/04/18 16:51 250 ml @ PER PROTOCOL 07/04/18 DC Norepinephrin 7.5 mls/hr ONCE IV 15:00 e 07/04/18 15:00 Dopamine 250 ml @ PER PROTOCOL 07/04/18 DC HCl/ 7.5 mls/hr ONCE IV 15:00 Dextrose 07/04/18 16:42 250 ml @ PER PROTOCOL 07/04/18 DC 07/04/18 Norepinephrin 7.5 mls/hr ONCE IV 15:00 15:30 e 07/04/18 22:33 Dextrose 100 ml ONCE ONCE 07/04/18 DC 07/04/18 (D50w IV 16:30 16:15 Syringe) 07/04/18 16:31 Dextrose 50 ml STK-MED 07/04/18 DC (D50w ONCE .ROUTE 16:12 Syringe) 07/04/18 16:13 Sodium 0 ml @ 0 Q0M ONCE 07/04/18 DC Chloride mls/hr IV 16:36 07/04/18 16:38 Propofol 100 ml @ ONCE STAT 07/04/18 DC 07/04/18 1.637 mls/ IV 16:43 17:02 hr 07/04/18 22:33 Fentanyl 50 mcg ONCE STAT 07/04/18 DC 07/04/18 (Sublimaze) IV 17:16 17:28 07/04/18 17:17 Fentanyl 25 mcg Q10M PRN 07/04/18 DC (Sublimaze) IV SEDATION 17:30 07/04/18 22:33 Fentanyl 100 ml @ TITRATE IV 07/04/18 DC 07/04/18 2.5 mls/hr 17:30 17:41 07/04/18 22:33 Midazolam 50 ml @ 2 ONCE IV 07/04/18 DC 07/04/18 HCl mls/hr 19:00 19:17 07/04/18 22:33 Midazolam 4 mg ONCE ONCE 07/04/18 DC 07/04/18 HCl IV 19:00 18:55 (Versed) 07/04/18 19:01 Procedures/MDM EMERGENT LABS AND DIAGNOSTIC STUDIES: Lab Results above were reviewed and interpreted by me. CBC: Leukocytosis, consistent with acute infection. Anemia, likely due to chronic disease CMP: Evidence of dehydration with elevated BUN and hypernatremia. Mild hypokalemia. Hypoglycemia noted. Troponin within normal limits, not indicative of cardiac ischemia Lactate significantly elevated, consistent with tissue hypoperfusion UA: Evidence of infection Blood and urine cultures pending 12-lead EKG was interpreted by Blanca Jaime MD: Sinus tachycardia at 114 bpm Normal axis Normal intervals ST and T wave abnormality in the inferior leads, consistent with possible ischemia No acute STEMI. Radiology Results as interpreted by Radiology below were reviewed by Love Jaime MD: Chest x-ray: Evidence of bilateral pneumonia CT head shows no acute abnormalities Initial Nursing notes reviewed. Previous Medical Records requested via the Electronic Health Record. EMERGENCY DEPARTMENT COURSE / MEDICAL DECISION MAKING: Procedures: Central Line Placement by me: Patient consented, sterilely draped, full prep, gown, glove, mask, time out performed. Anesthesia: 1% lidocaine locally Location: Right femoral vein Device: Multiple lumen Technique: Seldinger technique. Secured with suture. Results: Venous return from all ports with easy saline flush. No complications. Guide wire retrieved and disposed of. MDM: Severe Sepsis Assessment: Infectious Source: Health care associated pneumonia End organ damage indicated by: Lactate > 2.0 mmol/L Hypotension( SBP < 90 or >40 mmHG drop or MAP < 65) Acute Resp Failure (sat < 92% w/o oxygen) Severe Sepsis Managment: Blood Cultures X 2 before broad spectrum antibiotics initiated within 3 hours of recognition. 30 ml/kg NS bolus Completed Initial Lactate: 13.1 Repeat Lactate pending Septic Shock Assessment (1 hour post 30 ml/kg fluid bolus): Hypotension (SBP < 90 or 40 mmHg drop, MAP < 65): yes Lactic acid > 4.0 yes Perfusion Reassessment for Septic Shock: Temp 97.7 F pulse 113 RR 24 BP 119/49 Heart Exam: Tachycardic Lung Exam: Diminished breath sounds bilaterally with no obvious crackles Capillary Refill: Delayed Peripheral Pulses: Radially present Skin: Pale, cool, dry Hypotensive Treatment (not required for isolated lactic acid elevation): Comfort Care: No Central LIne: placed Vasopressor started: Norepinephrine Patient is presenting after cardiac arrest with ROSC. Upon arrival he did have pulses but was severely hypotensive. A central line was placed and he was started on initially peripheral vasopressors, then this was transitioned to the central line. Hypothermia protocol was initiated once the patient was stabilized. Target temperature was 36 F and this was communicated with nursing. His workup is consistent with septic shock likely secondary to healthcare associated pneumonia. He was started on fluids, antibiotics, vasopressors. He was hypoglycemic, for which IV dextrose was given. Panel physician Dr. Manning was consulted for admission. The findings were discussed with the patient's daughter at bedside who later left. While the patient was awaiting admission, he did have a cardiac arrest and CPR w as immediately initiated. Cardiopulmonary Resuscitation by me: See code documentation for specific details. ACLS and BLS were performed with high quality chest compressions and minimal interruptions. Reversible causes were assessed and treated. Patient did have return of spontaneous circulation. However he did have a cardiac arrest again. Family was contacted and informed of the patient's poor condition. Upon recurrent cardiac arrest, decision was made to stop any resuscitative attempts as the patient's prognosis at this point is very poor and he has had multiple cardiac arrests and is very unstable. Patient's family was informed and was agreeable with the decision that was made. Time of : 1936 Critical Care Time: 74 minutes Treatments/Evaluations: Close monitoring and treatment of unstable vital signs, cardiorespiratory, and neurologic status, while maintaining tight balance of fluid, respiratory, and cardiac interventions. This time includes discussing the case with the patient and the patients family. This time does not include all procedures stated elsewhere in this record. This time also includes reviewing old records, labs and radiological studies. This time includes examining and re- examining the patient. Additionally, this time also includes arranging care with admitting and consulting physicians. Departure Diagnosis: Primary Impression: Cardiac arrest Additional Impressions: Septic shock Prerenal azotemia Healthcare-associated pneumonia Hypoglycemia Anemia Anemia type: unspecified type Qualified Codes: D64.9 - Anemia, unspecified Acute and chronic respiratory failure Condition: Critical NICOLE JAIME MD Jul 04, 2018 15:34
[2018-07-04] MEDS ORDERED: DEXTROSE 50% 50 ML SYRINGE ONE (16:12)
[2018-07-04] MEDS ORDERED: DEXTROSE 50% 50 ML SYRINGE IV ONE (16:30)
[2018-07-04] MEDS ORDERED: SOD CHLORIDE 0.9% 0 ML IV ONE (16:36)
[2018-07-04] MEDS ORDERED: ALBU2.5V3 NEB ×2 (16:36)
[2018-07-04] MEDS ORDERED: AMIO100T4 GTB (16:37)
[2018-07-04] MEDS ORDERED: CARB1TAB34 GTB (16:38)
[2018-07-04] MEDS ORDERED: CHLO473M2 MM (16:39)
[2018-07-04] MEDS ORDERED: DOCU-144 GTB (16:40)
[2018-07-04] MEDS ORDERED: CRAN425C6 GTB (16:41)
[2018-07-04] MEDS ORDERED: FERR220S13 GTB (16:42)
[2018-07-04] MEDS ORDERED: PROPOFOL 100 ML IV STA (16:43)
[2018-07-04] MEDS ORDERED: FLUT16SP17 NASAL (16:43)
[2018-07-04] MEDS ORDERED: FOLI-49 GTB (16:44)
[2018-07-04] MEDS ORDERED: PHOS250T GTB (16:45)
[2018-07-04] MEDS ORDERED: LOSA50TA14 GTB (16:46)
[2018-07-04] MEDS ORDERED: PRED10TA GTB (16:47)
[2018-07-04] MEDS ORDERED: AMIN30LI GTB (16:48)
[2018-07-04] MEDS ORDERED: MTC5V480 GTB (16:51)
[2018-07-04] MEDS ORDERED: UDREG GTB (16:52)
[2018-07-04] MEDS ORDERED: LEVO125T GTB (16:53)
[2018-07-04] MEDS ORDERED: THIA100T56 GTB (16:54)
[2018-07-04] MEDS ORDERED: TRAM50TA GTB (16:55)
[2018-07-04] MEDS ORDERED: ACET325T33 GTB (16:56)
[2018-07-04] MEDS ORDERED: CRAN3875 GTB (16:57)
[2018-07-04] MEDS ORDERED: ASC500 GTB (16:58)
[2018-07-04] MEDS ORDERED: FENTAnyl 50 MCG/ML VIAL IV STA (17:16)
[2018-07-04] MEDS ORDERED: FENTAnyl (DRIP) 1000 mcg/100mL 100 ML IV SCH (17:30)
[2018-07-04] MEDS ORDERED: FENTAnyl 50 MCG/ML VIAL IV PRN (17:30)
[2018-07-04 17:55] VITALS: BP 108/44; PULSE 124; RESP 26
[2018-07-04 18:10] VITALS: BP 96/51; PULSE 126; RESP 23
[2018-07-04 18:55] VITALS: BP 54/32; PULSE 64; RESP 24
[2018-07-04] MEDS ORDERED: MIDAZOLAM (DRIP) 50 mg/50 mL 50 ML IV SCH (19:00)
[2018-07-04] MEDS ORDERED: MIDAZOLAM 1 MG/ML 2 ML INJ IV ONE (19:00)
[2018-07-04 19:30] VITALS: BP 63/33; PULSE 119; RESP 24
== END 2018-07-04 22:16 | disposition expired ==
LOC: E/R 14:47
DX: I46.9 Cardiac arrest, cause unspecified (principal); R65.21 Severe sepsis with septic shock; A41.9 Sepsis, unspecified organism; J18.9 Pneumonia, unspecified organism; D64.9 Anemia, unspecified; J96.20 Acute and chronic respiratory failure, unspecified whether with hypoxia or hypercapnia; G20 Parkinson's disease; E16.2 Hypoglycemia, unspecified; R40.2112 Coma scale, eyes open, never, at arrival to emergency department; R40.2212 Coma scale, best verbal response, none, at arrival to emergency department; R40.2312 Coma scale, best motor response, none, at arrival to emergency department; Z87.891 Personal history of nicotine dependence
CPT/HCPCS: 36415; 36556; 36600; 51702; 70450; 71045; 80053; 82803; 82962; 83605; 83690; 83735; 84100; 84484; 85025; 85610; 85730; 86850; 86900; 86901; 86920; 87040; 92950; 93005; 94002; 96365; 96375; 99291; J0692; J2250; J3010; J3370; J7030; J7040